=== PATIENT | female | born 1950 | race Hispanic/Latino ===

== ENCOUNTER 2018-02-13 20:55 | Inpatient (IN) | payer BC, OTHER ==
[2018-02-13 22:00] LABS: Absolute Lymphocytes (CBC) 3.4 K/uL (0.7-4.9); Absolute Monocytes 0.7 K/uL (0.1-1.3); Absolute Neutrophil 5.5 K/uL (1.8-8.0); Basophils % 1.2 % (0-1.3); Eosinophils % 3.3 % (0-4.4); Hematocrit 39.6 % (36.0-45.0); Lymphocytes % 33.7 % (15.3-44.8); MCV 86.8 fL (80-100); MPV 10.1 fL (7.6-11.3); Monocytes % 7.3 % (3.3-12.3); RBC Red Blood Cell Count 4.56 M/uL (3.86-4.86)
[2018-02-13 22:12] LABS: Protime INR 0.92
[2018-02-13] MEDS ORDERED: ASPIRIN 81 MG CHEWABLE TABLET ONE (22:12)
[2018-02-13 22:14] LABS: Bicarbonate 27 mEq/L (21-31); Glucose Level 193 mg/dL (65-120); Potassium 3.6 mEq/L (3.6-5.0); Sodium Level 137 mEq/L (135-145)
[2018-02-13 22:21] LABS: ALT/SGPT 33 IU/L (10-60); AST/SGOT 34 IU/L (10-42); Albumin 4.2 g/dL (3.2-5.5); Alkaline Phosphatase 68 IU/L (42-121); BUN Blood Urea Nitrogen 14 mg/dL (6-20); Bilirubin Direct < 0.1 mg/dL (0-0.2); Bilirubin Total 0.3 mg/dL (0.3-1.2); Creatine Phosphokinase 58 IU/L (22-269); Magnesium 1.8 mg/dL (1.8-2.5); Protein, Total 7.5 g/dL (6.0-8.3)
[2018-02-13 22:22] LABS: CKMB Creatine Kinase MB 2.6 ng/ml (0.3-4.0)
[2018-02-13 22:54] LABS: Urine Blood NEGATIVE (NEG); Urine Glucose NEGATIVE (NEG); Urine Protein NEGATIVE (NEG); Urine Specific Gravity 1.015 (1.005-1.030)
[2018-02-13] MEDS ORDERED: ENOXAPARIN 60 MG/0.6 ML SQ ONE (23:25)
--- NOTE | 2018-02-13 23:26 | ER ---
Nurse's Notes [facility] Name: Felisha Conde Age: 67 yrs Sex: Female : 1950 Arrival Date: 02/13/2018 Time: 20:58 Bed 23 Private MD: Diagnosis: ACUTE CORONARY SYNDROME Presentation: 02/13 21:08 Presenting complaint: Patient states: I have been out of my BP meds and I have been la1 having intermittent chest pain since early this week. Transition of care: patient was not received from another setting of care. Onset of symptoms was February 13, 2018. Initial Sepsis Screen: Does the patient meet any 2 criteria? No. Patient's initial sepsis screen is negative. Does the patient have a suspected source of infection? No. Patient's initial sepsis screen is negative. Care prior to arrival: None. 21:08 Method Of Arrival: Wheelchair la1 21:08 Acuity: MIRANDA 3 la1 Historical: - Allergies: 21:09 No Known Allergies; la1 - Home Meds: 22:11 telmisartan-amlodipine 40-5 mg oral tab 1 tab once daily for Hypertension [Active]; kr2 carvedilol 12.5 mg oral tab 1 tab 2 times per day for Hypertension [Active]; Kombiglyze XR 2.5-1,000 mg oral TM24 1 tab once daily for Type 2 Diabetes Mellitus [Active]; - PMHx: 21:09 Diabetes - NIDDM; Hyperlipidemia; Hypertension; la1 - Immunization history:: Adult Immunizations up to date. - Social history:: Smoking status: Patient/guardian denies using tobacco. Screenin:55 Abuse screen: Denies threats or abuse. Denies injuries from another. Nutritional kr2 screening: No deficits noted. Tuberculosis screening: No symptoms or risk factors identified. Fall Risk IV access (20 points). Assessment: 21:35 General: Appears in no apparent distress. uncomfortable, well groomed, well developed, kr2 well nourished, Behavior is cooperative, anxious. Pain: Pain radiates to left arm Pain currently is 7 out of 10 on a pain scale. Quality of pain is described as sharp, shooting, Pain began 3 weeks ago and has continued off and on. Yesterday and today it has been much worse though Is intermittent, Alleviated by nothing. Aggravated by increased activity. Neuro: Level of Consciousness is awake, alert, obeys commands, Oriented to person, place, time, situation, Appropriate for age. Cardiovascular: Capillary refill < 3 seconds in bilateral fingers Patient's skin is warm and dry. Rhythm is sinus rhythm. Respiratory: Airway is patent Respiratory effort is even, unlabored, Respiratory pattern is regular, symmetrical. GI: Abdomen is flat, non-distended, Patient currently denies nausea. : No signs and/or symptoms were reported regarding the genitourinary system. EENT: Nares are clear Oral mucosa is moist. Derm: Skin is intact, is healthy with good turgor, Skin is pink, warm \T\ dry. Musculoskeletal: Circulation, motion, and sensation intact. 23:12 Reassessment: Patient appears in no apparent distress at this time. Patient and/or kr2 family updated on plan of care and expected duration. Pain level reassessed. Patient is alert, oriented x 3, equal unlabored respirations, skin warm/dry/pink. Patient states feeling better. 02/14 00:01 Reassessment: Patient appears in no apparent distress at this time. Patient and/or kr2 family updated on plan of care and expected duration. Pain level reassessed. Patient is alert, oriented x 3, equal unlabored respirations, skin warm/dry/pink. Patient states feeling better. Patient states symptoms have improved. 00:41 Reassessment: Patient appears in no apparent distress at this time. Patient and/or kr2 family updated on plan of care and expected duration. Pain level reassessed. Patient is alert, oriented x 3, equal unlabored respirations, skin warm/dry/pink. Patient denies pain at this time. Vital Signs: 02/13 21:09 BP 150 / 61; Pulse 63; Resp 19; Temp 98.3; Pulse Ox 100% on R/A; Weight 63.05 kg; la1 Height 5 ft. 3 in. (160.02 cm); 22:00 BP 145 / 70; Pulse 61; Resp 17; Pulse Ox 98% on R/A; kr2 23:12 BP 139 / 54; Pulse 62; Resp 16; Pulse Ox 100% on R/A; kr2 02/14 00:02 BP 115 / 72; Pulse 57; Resp 15; Pulse Ox 97% on R/A; kr2 00:42 BP 143 / 52; Pulse 55; Resp 15; Pulse Ox 97% on R/A; kr2 02/13 21:09 Body Mass Index 24.62 (63.05 kg, 160.02 cm) la1 ED Course: 02/13 20:58 Patient arrived in ED. es 21:09 Triage completed. la1 21:10 Arm band placed on left wrist. la1 21:25 EKG done, by ED staff, reviewed by Frank Bragg MD. dh3 21:34 Frank Bragg MD is Attending Physician. tw4 21:35 Patient has correct armband on for positive identification. Bed in low position. Call kr2 light in reach. Side rails up X2. air sampling and monitoring on. Pulse ox on. NIBP on. Door closed. Warm blanket given. Head of bed elevated. 21:38 Missed attempt(s): 22 gauge in left antecubital area. Bleeding controlled, band aid kr2 applied, catheter tip intact. 21:40 Inserted saline lock: 20 gauge in right antecubital area, using aseptic technique. kr2 Blood collected. 21:51 Flor Pratt, SANTO is Primary Nurse. kr2 21:55 X-ray completed. Portable x-ray completed in exam room. Patient tolerated procedure ag1 well. 21:56 XRAY Chest (1 view) In Process Unspecified. EDMS 21:56 Patient maintains SpO2 saturation greater than 95% on room air. kr2 23:25 Drew Gomez MD is Hospitalizing Provider. tw4 02/14 01:00 No provider procedures requiring assistance completed. Patient admitted, IV remains in ak1 place. Administered Medications: 02/13 22:15 Drug: Aspirin 81 mg Route: PO; kr2 23:16 Follow up: Response: No adverse reaction kr2 23:29 Drug: Lovenox 1 mg/kg Route: Sub-Q; Site: right lower abdomen; kr2 02/14 00:03 Follow up: Response: No adverse reaction kr2 Outcome: 02/13 23:26 Decision to Hospitalize by Provider. tw4 02/14 01:01 Condition: good ak1 Instructed on the need for admit. 01:45 Admitted to Tele accompanied by tech, via stretcher, room 426, with chart, Report ak1 called to Liz BLANCHARD 02:00 Patient left the ED. bb Signatures: Dispatcher [employer] EDWA Liban, Cris es [place], Lorraine, RN RN Dwayne Calvillo RN RN la1 Lissette Livingston RN RN mae1 Lidia Francis [facility] Shelley Albarran 3 Flor Pratt RN RN kr2 Frank Bragg MD MD tw4 Corrections: (The following items were deleted from the chart) 00:03 00:02 BP 151 / 75; Pulse 57bpm; Resp 15bpm; Pulse Ox 97% RA; kr2 kr2
--- NOTE | 2018-02-13 23:26 | EDPHYS ---
Physician Documentation [facility] Name: Felisha Conde Age: 67 yrs Sex: Female : 1950 Arrival Date: 02/13/2018 Time: 20:58 Bed 23 Private MD: ED Physician Frank Bragg HPI: 02/14 00:15 This 67 yrs old Female presents to ER via Wheelchair with complaints of Chest tw4 Pain. 00:15 The patient or guardian reports chest pain that is located primarily in the anterior tw4 chest wall. The patient or guardian reports chest pain that is located primarily in the anterior chest wall, left. Onset: today. The pain does not radiate. Associated signs and symptoms: The patient has no apparent associated signs or symptoms. The chest pain is described as dull. Duration: The patient or guardian reports a single episode, that is now resolved. Modifying factors: The symptoms are alleviated by nothing. the symptoms are aggravated by nothing. Severity of pain: At its worst the pain was mild in the emergency department the pain has resolved. Historical: - Allergies: 02/13 21:09 No Known Allergies; la1 - Home Meds: 22:11 telmisartan-amlodipine 40-5 mg oral tab 1 tab once daily for Hypertension [Active]; kr2 carvedilol 12.5 mg oral tab 1 tab 2 times per day for Hypertension [Active]; Kombiglyze XR 2.5-1,000 mg oral TM24 1 tab once daily for Type 2 Diabetes Mellitus [Active]; - PMHx: 21:09 Diabetes - NIDDM; Hyperlipidemia; Hypertension; la1 - Immunization history:: Adult Immunizations up to date. - Social history:: Smoking status: Patient/guardian denies using tobacco. ROS: 02/14 00:15 Constitutional: Negative for fever, chills, and weight loss, Respiratory: Negative for tw4 shortness of breath, cough, wheezing, and pleuritic chest pain, Abdomen/GI: Negative for abdominal pain, nausea, vomiting, diarrhea, and constipation, Back: Negative for injury and pain, MS/Extremity: Negative for injury and deformity, Skin: Negative for injury, rash, and discoloration, Neuro: Negative for headache, weakness, numbness, tingling, and seizure. Cardiovascular: Positive for chest pain, Negative for edema, orthopnea, palpitations. Exam: 00:15 Constitutional: This is a well developed, well nourished patient who is awake, alert, tw4 and in no acute distress. Head/Face: Normocephalic, atraumatic. Chest/axilla: Normal chest wall appearance and motion. Nontender with no deformity. No lesions are appreciated. Cardiovascular: Regular rate and rhythm with a normal S1 and S2. No gallops, murmurs, or rubs. Normal PMI, no JVD. No pulse deficits. Respiratory: Lungs have equal breath sounds bilaterally, clear to auscultation and percussion. No rales, rhonchi or wheezes noted. No increased work of breathing, no retractions or nasal flaring. Abdomen/GI: Soft, non-tender, with normal bowel sounds. No distension or tympany. No guarding or rebound. No evidence of tenderness throughout. MS/ Extremity: Pulses equal, no cyanosis. Neurovascular intact. Full, normal range of motion. Neuro: Awake and alert, GCS 15, oriented to person, place, time, and situation. Cranial nerves II-XII grossly intact. Motor strength 5/5 in all extremities. Sensory grossly intact. Cerebellar exam normal. Normal gait. 00:31 ECG was reviewed by the Attending Physician. tw4 Vital Signs: 02/13 21:09 BP 150 / 61; Pulse 63; Resp 19; Temp 98.3; Pulse Ox 100% on R/A; Weight 63.05 kg; la1 Height 5 ft. 3 in. (160.02 cm); 22:00 BP 145 / 70; Pulse 61; Resp 17; Pulse Ox 98% on R/A; kr2 23:12 BP 139 / 54; Pulse 62; Resp 16; Pulse Ox 100% on R/A; kr2 02/14 00:02 BP 115 / 72; Pulse 57; Resp 15; Pulse Ox 97% on R/A; kr2 00:42 BP 143 / 52; Pulse 55; Resp 15; Pulse Ox 97% on R/A; kr2 02/13 21:09 Body Mass Index 24.62 (63.05 kg, 160.02 cm) la1 MDM: 02/13 21:34 Patient medically screened. tw4 02/14 00:15 Data reviewed: vital signs, nurses notes. Counseling: I had a detailed discussion with tw4 the patient and/or guardian regarding: the historical points, exam findings, and any diagnostic results supporting the discharge/admit diagnosis. Physician consultation: Drew Gomez MD regarding admission, patient's condition, need to come to ED to see patient, and will see patient in ED. Admission orders: after a detailed discussion of the patient's condition and case, the admit orders are written by me. ED course: Pt's troponin return elevated. will start on lovenox and admit to the hospital. 02/13 21:37 Order name: Basic Metabolic Panel; Complete Time: 23:12 02/13 21:37 Order name: BNP; Complete Time: 23:12 02/13 21:37 Order name: CBC with Diff; Complete Time: 23:12 02/13 21:37 Order name: Ckmb; Complete Time: 23:12 02/13 21:37 Order name: CPK; Complete Time: 23:12 02/13 21:37 Order name: LFT's; Complete Time: 23:12 02/13 21:37 Order name: Magnesium; Complete Time: 23:12 02/13 21:37 Order name: PT-INR; Complete Time: 23:12 02/13 21:37 Order name: Ptt, Activated; Complete Time: 23:12 02/13 21:37 Order name: Troponin (emerg Dept Use Only); Complete Time: 23:12 02/13 21:37 Order name: XRAY Chest (1 view) 02/13 22:48 Order name: Urine Dipstick--Ancillary (enter results); Complete Time: 23:12 02/13 21:37 Order name: EKG; Complete Time: 21:37 02/13 21:37 Order name: Cardiac monitoring; Complete Time: 21:51 02/13 21:37 Order name: EKG - Nurse/Tech; Complete Time: 21:51 02/13 21:37 Order name: IV Saline Lock; Complete Time: 21:51 02/13 21:37 Order name: Labs collected and sent; Complete Time: 21:51 02/13 21:37 Order name: O2 Per Protocol; Complete Time: 21:51 02/13 21:37 Order name: O2 Sat Monitoring; Complete Time: 21:51 tw4 02/13 21:37 Order name: Urine Dipstick-Ancillary (obtain specimen); Complete Time: 22:32 tw4 EC:31 Rate is 63 beats/min. Rhythm is regular. QRS [place] is Normal. IN interval is normal. QRS tw4 interval is normal. QT interval is normal. T waves are Inverted in leads V1, V2. Clinical impression: Cardiac ischemia. Interpreted by me. Reviewed by me. Administered Medications: 02/13 22:15 Drug: Aspirin 81 mg Route: PO; kr2 23:16 Follow up: Response: No adverse reaction kr2 23:29 Drug: Lovenox 1 mg/kg Route: Sub-Q; Site: right lower abdomen; kr2 02/14 00:03 Follow up: Response: No adverse reaction kr2 Disposition: 02/13/18 23:26 Hospitalization ordered by Drew Gomez for Observation. Preliminary diagnosis is ACUTE CORONARY SYNDROME. - Bed requested for Telemetry/MedSurg (Inpatient). - Status is Observation. bb - Condition is Fair. - Problem is new. - Symptoms have improved. UTI on Admission? No Signatures: Dispatcher [employer] Malu Rivas RN RN kl Ballard, Brenda, RN RN bb Attema, Lee, RN RN la1 Reaves, Karey, RN RN kr2 Frank Bragg MD MD tw4
--- NOTE | 2018-02-14 00:46 | P.HP ---
Certification for Inpatient Patient admitted to: Observation With expected LOS: <2 Midnights Practitioner: I am a practitioner with admitting privileges, knowledge of patient current condition, hospital course, and medical plan of care. Services: Services provided to patient in accordance with Admission requirements found in Title 42 Section 412.3 of the Code of Federal Regulations Patient History Date of Service: 02/14/18 Reason for admission: NSTEMI History of Present Illness: Ms Conde is a 67 years old woman with history of DM II, HTN, who has not been taking her blood pressure medication for the last week. Since yesterday she noticed that her BP increased, associated with recurrent episodes of chest pain. Today she had chest pain episode while her BP was about 190's/10's. She describe the pain as tightness sensation, substernal, no radiation, associated with nausea. Intensity 7/10. The pain last for about 10 minutes. EKG shows T wave inversion on septal leads. Trop I 0.31. Currently she is chest pain free. Allergies soy Allergy (Verified 05/31/15 14:56) Hives/Rash No Known Allergies Allergy (Uncoded 10/03/17 18:08) Unknown Home medications list reviewed: Yes Home Medications: Escitalopram Oxalate 10 mg PO DAILY 05/31/15 Ferrous Sulfate [Ferrous Sulfate*] 325 mg PO DAILY 05/31/15 Glimepiride [Amaryl] 4 mg PO DAILY 05/31/15 Hydrochlorothiazide [Hydrochlorothiazide*] 12.5 mg PO DAILY 05/31/15 Lorazepam [Ativan*] 0.5 mg PO PRN 05/31/15 Metformin ER [Glucophage ER*] 1,000 mg PO DAILY 05/31/15 Saxagliptin HCl [Onglyza] 2.5 mg PO DAILY 05/31/15 Amlodipine [Norvasc*] 10 mg PO DAILY #30 tab 06/01/15 Carvedilol [Coreg*] 12.5 mg PO BID 6AM 6PM #60 tab 06/01/15 Lisinopril [Prinivil*] 40 mg PO DAILY #60 tab 06/01/15 - Past Medical/Surgical History Diabetic: Yes -: HTN -: IDDM -: Hystectomy - Family History Family History: Reviewed- Non-Contributory - Social History Alcohol use: No CD- Drugs: No Caffeine use: Yes Place of Residence: Home Review of Systems 10-point ROS is otherwise unremarkable Physical Examination - Physical Exam General: Alert, In no apparent distress HEENT: Atraumatic, PERRLA, Mucous membr. moist/pink, EOMI, Sclerae nonicteric Neck: Supple, 2+ carotid pulse no bruit, No LAD, Without JVD or thyroid abnormality Respiratory: Clear to auscultation bilaterally, Normal air movement Cardiovascular: Regular rate/rhythm, Normal S1 S2 Gastrointestinal: Normal bowel sounds, No tenderness Musculoskeletal: No tenderness Integumentary: No rashes Neurological: Normal speech, Normal strength at 5/5 x4 extr, Normal tone, Normal affect Lymphatics: No axilla or inguinal lymphadenopathy - Studies Laboratory Data (last 24 hrs) 02/13/18 21:40: PT 10.8, INR 0.92, APTT 20.7 L 02/13/18 21:40: WBC 10.1, Hgb 13.2, Hct 39.6, Plt Count 312 02/13/18 21:40: B-Natriuretic Peptide 96 02/13/18 21:40: Sodium 137, Potassium 3.6, BUN 14, Creatinine 0.77, Glucose 193 H, Magnesium 1.8, Total Bilirubin 0.3, AST 34, ALT 33, Alkaline Phosphatase 68 Assessment and Plan - Problems (Diagnosis) (1) Chest pain Onset Date: 06/03/15 Current Visit: No Status: Acute Qualifiers: Chest pain type: chest pain due to myocardial ischemia Ischemic chest pain type: unstable angina pectoris Qualified Code(s): I20.0 - Unstable angina (2) Diabetes mellitus Onset Date: 06/03/15 Current Visit: No Status: Acute Qualifiers: Diabetes mellitus type: type 2 Diabetes mellitus mcc insulin use: without mcc use Diabetes mellitus complication status: with unspecified complications Qualified Code(s): E11.8 - Type 2 diabetes mellitus with unspecified complications (3) Hypertension, uncontrolled Onset Date: 06/03/15 Current Visit: No Status: Acute - Plan Ms Conde will be admitted to the hospital due to NSTEMI. Initial troponin I elevated, EKG with ischemic changes. Will order full dose Lovenox, ASA, Brilinta , Atorvastatin. Will wave beta keith since her HR is on the lower side. Consult cardiology team. - Advance Directives Does patient have a Living Will: No Does patient have a Durable POA for Healthcare: No - Code Status/Comfort Care Code Status Assessed: Yes Code Status: Full Code
[2018-02-14] MEDS ORDERED: TICAGRELOR 90 MG TABLET PO ONE ×2 (01:42→02:24)
[2018-02-14] MEDS ORDERED: GLUCAGON 1 MG/VIAL IM PRN (01:42)
[2018-02-14] MEDS ORDERED: ACETAMINOPHEN 500 MG TAB PO PRN (01:42)
[2018-02-14] MEDS ORDERED: D50W 25 GM/50 ML SYRINGE IV PRN (01:42)
[2018-02-14] MEDS ORDERED: NITROGLYCERIN 0.4 MG/TAB SL PRN (01:42)
[2018-02-14 02:10] VITALS: BMI 24.0
[2018-02-14 03:07] LABS: Absolute Lymphocytes (CBC) 3.7 K/uL (0.7-4.9); Absolute Monocytes 0.8 K/uL (0.1-1.3); Absolute Neutrophil 4.6 K/uL (1.8-8.0); Basophils % 1.1 % (0-1.3); Eosinophils % 3.1 % (0-4.4); Hematocrit 36.8 % (36.0-45.0); Lymphocytes % 39.1 % (15.3-44.8); MCH 28.8 pg (27.0-35.0); MPV 10.2 fL (7.6-11.3); Monocytes % 8.1 % (3.3-12.3); RBC Red Blood Cell Count 4.23 M/uL (3.86-4.86)
[2018-02-14 03:30] LABS: BUN Blood Urea Nitrogen 13 mg/dL (6-20); Bicarbonate 28 mEq/L (21-31); Glucose Level 196 mg/dL (65-120)
[2018-02-14 03:31] LABS: HDL Cholesterol 33 mg/dL (29-89); LDL Cholesterol, Calculated ND (<130)
[2018-02-14 03:47] LABS: Potassium 3.8 mEq/L (3.6-5.0); Sodium Level 138 mEq/L (135-145)
[2018-02-14 04:06] LABS: LDL, Direct 118 mg/dl (<130)
--- NOTE | 2018-02-14 07:01 | EKG ---
Test Date: 2018-02-14 Test Time: 05:28:10 Enterprise Application Developer: RT T MEASUREMENT RESULTS: Intervals: Rate: 53 MD: 186 QRSD: 92 QT: 474 QTc: 444 [place]: P: 43 MD: 186 QRS: 52 T: 93 INTERPRETIVE STATEMENTS: Sinus bradycardia Nonspecific ST and T wave abnormality Abnormal ECG Compared to ECG 02/13/2018 21:21:32 ST (T wave) deviation now present Sinus rhythm no longer present Electronically Signed On 02-14-18 07:00:34 CDT by Abram Ivan
--- NOTE | 2018-02-14 07:02 | EKG ---
Test Date: 2018-02-13 Test Time: 21:21:32 Bread Slicer Machine: MAICO MEASUREMENT RESULTS: Intervals: Rate: 63 [place]: 172 QRSD: 94 QT: 420 QTc: 429 [place]: P: 32 [place]: 172 QRS: 56 T: 81 INTERPRETIVE STATEMENTS: Normal sinus rhythm Normal ECG Compared to ECG 06/01/2015 06:01:31 Sinus bradycardia no longer present Electronically Signed On 02-14-18 07:01:17 CDT by Abram Ivan
[2018-02-14] MEDS: INSULIN -REGULAR HUMAN 50 UNIT/0.5 ML ML SQ SCH ×4 (07:30→21:00)
--- NOTE | 2018-02-14 08:05 | RAD REPORT ---
EXAM DESCRIPTION: Subha Single View02/13/2018 9:56 pm CLINICAL HISTORY: Chest pain COMPARISON: 2014 FINDINGS: The lungs appear clear of acute infiltrate. The heart is normal size. Curvilinear density overlying the left lower neck probably represents overlying artifact and should b e correlated clinically IMPRESSION: No acute abnormalities displayed
[2018-02-14] MEDS: LISINOPRIL 20 MG TAB PO SCH (10:30)
[2018-02-14] MEDS: ASPIRIN 325 MG TAB PO SCH (10:30)
[2018-02-14] MEDS: ENOXAPARIN 60 MG/0.6 ML SQ SCH ×2 (10:31→21:28)
--- NOTE | 2018-02-14 14:15 | CON ---
A 67-year-old woman. History Of Present Illness: Ms. Conde is a woman, who was doing very well until she ran out of medi Greats. She said she had insurance coverage canceled. One of her medicines was too expensive to af barker, so she stopped all them shortly after that. When she would exert herself, she had notice her b lood pressure would go up somewhere like 200/100 and she would get a tight feeling in her chest, so s he came to our hospital with those symptoms. Presently is asymptomatic. She has troponins of 0.3. She has EKGs that are normal. One of her EKGs shows nonspecific ST changes. We do not know what her outpatient medications are present. She is receiving Lovenox, Lipitor, aspirin, nitroglycerin, Bril inta. I do not see that she is on any medication doses that reduce the risk of heart disease of diab etic people. I think she would probably benefit from being on either an ROBSON inhibitor or angiotensin receptor keith and perhaps one of the medications like Jardiance. Presently, she is asymptomatic. She was asymptomatic until she ran out of medicines. I am going to recommend that we do a stress t est, I recommended to do that tomorrow. Today, we will have her on usual medications that control CA D and we will see if she has enough ischemia to warrant doing a cardiac cath. Thank you very much for kind referral of Ms. Conde. So, I will follow her with you. AMINAH Voice ID: [id number] Report ID: [id number]
--- NOTE | 2018-02-14 16:40 | ECHO ---
HEIGHT: 5 ft 3 in WEIGHT: 136 lb 0 oz DATE OF STUDY: 02/14/[address]: Drew Saenz MD 2-DIMENSIONAL: YES M.MODE: YES DOPPLER: YES COLOR FLOW: YES TDS: PORTABLE: DEFINITY: BUBBLE STUDY: DIAGNOSIS: CHEST PAIN CARDIAC HISTORY: CATHERIZATION: NO SURGERY: NO PROSTHETIC VALVE: NO PACEMAKER: NO MEASUREMENTS (cm) DIASTOLIC (NORMALS) SYSTOLIC (NORMALS) IVSd 1.0 (0.6-1.2) LA Diam 3.6 (1.9-4.0) LVEF 75% LVIDd 4.3 (3.5-5.7) LVIDs 2.4 (2.0-3.5) %FS 43% LVPWd 1.1 (0.6-1.2) Ao Diam 2.3 (2.0-3.7) 2 DIMENSIONAL ASSESSMENT: RIGHT ATRIUM: DILATED LEFT ATRIUM: DILATED RIGHT VENTRICLE: NORMAL LEFT VENTRICLE: NORMAL TRICUSPID VALVE: NORMAL MITRAL VALVE: NORMAL PULMONIC VALVE: NORMAL AORTIC VALVE: NORMAL PERICARDIAL EFFUSION: NONE AORTIC ROOT: NORMAL LEFT VENTRICULAR WALL MOTION: NORMAL DOPPLER/COLOR FLOW: MILD TRICUSPID REGURGITATION. NORMAL RIGHT VENTRICULAR SYSTOLIC PRESSURE. COMMENTS: NORMAL LEFT VENTRICULAR EJECTION FRACTION. DILATED LEFT AND RIGHT ATRIUM. MILD TRICUSPID REGURGITATION. TECHNOLOGIST: LOLIS BEDOLLA
[2018-02-14] MEDS: CARVEDILOL 3.125 MG TAB PO SCH (17:00)
[2018-02-14] MEDS ORDERED: ATORVASTATIN 80 MG TAB PO SCH (21:00)
[2018-02-14 22:00] VITALS: O2SAT 99
[2018-02-15] MEDS: CARVEDILOL 3.125 MG TAB PO SCH ×2 (06:32→17:48)
[2018-02-15] MEDS ORDERED: REGADENOSON 0.4 MG/5 ML SYR IV ONE (07:21)
[2018-02-15] MEDS: INSULIN -REGULAR HUMAN 50 UNIT/0.5 ML ML SQ SCH ×3 (07:30→16:23)
[2018-02-15] MEDS: ENOXAPARIN 60 MG/0.6 ML SQ SCH (09:00)
--- NOTE | 2018-02-15 10:40 | RAD REPORT ---
EXAM DESCRIPTION: NM - Rest Stress Cardiac Imaging - 02/15/2018 10:33 am CLINICAL HISTORY: Chest pain COMPARISON: None. TECHNIQUE: The patient was administered 11 mCi of Tc 99m Sestamibi prior to resting SPECT imaging of the heart. The patient was then administered 30.5 mCi of Tc 99m Sestamibi following exercise or phar macologic stress. Multiplanar SPECT images were reviewed. FINDINGS: The end diastolic volume is 63 ml, the end systolic volume is 25 ml, and the ejection frac tion is 60 %. No stress-induced ischemic changes are identifiable. There is a fixed defect at the anteroseptal wall mid in apex portion. This could be breast attenuation artifact over scarring. Elsewhere there is no fixed defect or perfusion abnormality. IMPRESSION: No stress-induced ischemia. Fixed anteroseptal defect from breast attenuation artifact or scarring. Normal ejection fraction and ventricular volumes.
[2018-02-15] MEDS: LISINOPRIL 20 MG TAB PO SCH (10:47)
[2018-02-15] MEDS: ASPIRIN 325 MG TAB PO SCH (10:47)
--- NOTE | 2018-02-15 11:04 | TREADPHA ---
DX: CHEST PAIN Date of Study: 02/15/2018 Ht: 5' 3 " Wt: 136 lb 0 oz Consulting Physician: OTF MEDICATIONS: TYLENOL, ASPIRIN, LIPITOR, COREG, DEXTROSE, LOVENOX, GLUCAGEN, NOVOLIN-R, PRINIVIL, NITROSTAT HISTORY: 67 YEAR OLD FEMALE HERE FOR CHEST PAIN. HISTORY OF DIABETES, HYPERLIPIDEMIA AND HYPERTENSION. PHYSICIAL EXAMINATION: RESTING B.P.: 154/77 RESTING H.R.: 53 RESTING EKG: SINUS RHYTHM, POSSIBLE ANTERIOR ISCHEMIA, LEFT VENTRICULAR HYPERTROPHY. PROTOCOL: LEXISCAN EXERCISE TIME: 3:30 B.P. AT PEAK STRESS: 170/57 IMPRESSION: LEXISCAN STRESS TEST PERFORMED. CARDIOLITE INJECTED PER PROTOCOL. NO ARRRHYTMIAS NOTED. DENIES ANY CHEST PAIN. SEE NUCLEAR MEDICINE REPORT.
--- NOTE | 2018-02-15 16:28 | P.DS ---
Admission Date: 02/13/18 Discharge Date: 02/15/18 Disposition: ROUTINE DISCHARGE Discharge Condition: GOOD Reason for Admission: NSTEMI - Problems (1) Chest pain Onset Date: 06/03/15 Current Visit: No Status: Acute Qualifiers: Chest pain type: chest pain due to myocardial ischemia Ischemic chest pain type: unstable angina pectoris Qualified Code(s): I20.0 - Unstable angina (2) Diabetes mellitus Onset Date: 06/03/15 Current Visit: No Status: Acute Qualifiers: Diabetes mellitus type: type 2 Diabetes mellitus extermination inspector insulin use: without long-term use Diabetes mellitus complication status: with unspecified complications Qualified Code(s): E11.8 - Type 2 diabetes mellitus with unspecified complications (3) Hypertension, uncontrolled Onset Date: 06/03/15 Current Visit: No Status: Acute Brief History of Present Illness: Ms Conde is a 67 years old woman with history of DM II, HTN, who has not been taking her blood pressure medication for the last week. Since yesterday she noticed that her BP increased, associated with recurrent episodes of chest pain. Today she had chest pain episode while her BP was about 190's/10's. She describe the pain as tightness sensation, substernal, no radiation, associated with nausea. Intensity 7/10. The pain last for about 10 minutes. EKG shows T wave inversion on septal leads. Trop I 0.31. Currently she is chest pain free. Hospital Course: During her stay in the hospital, troponin I were elevated (max 0.36), EKG showd non-specific ST-T abnormailities. ECHO report normal LV function with EF 75% without WMA. Cardiology team evaluated the patient and recommended to do a NM stress test. The test was done today and was negative to induce ischemia. There was a fix defect at the anteroseptal wall mid in apex portion. This could be breast attenuation artifact over scarring. The patient resolved her symptoms and she is clinically and hemodynamically stable. She will be discharged home and let her PCP follow up in 1-2 weeks. Vital Signs/Physical Exam: Temp Pulse Resp BP Pulse Ox 98.1 F 63 14 145/70 H 94 02/15/18 12:00 02/15/18 12:00 02/15/18 12:00 02/15/18 12:00 02/15/18 12:00 General: Alert, In no apparent distress HEENT: Atraumatic, PERRLA, EOMI Neck: Supple, JVD not distended Respiratory: Clear to auscultation bilaterally, Normal air movement Cardiovascular: Regular rate/rhythm, Normal S1 S2 Gastrointestinal: Normal bowel sounds, No tenderness Musculoskeletal: No tenderness Integumentary: No rashes Neurological: Normal speech, Normal tone, Normal affect Lymphatics: No axilla or inguinal lymphadenopathy Laboratory Data at Discharge: WBC 9.4 K/uL (4.3-10.9) 02/14/18 02:28 Hgb 12.2 g/dL (12.0-15.0) 02/14/18 02:28 Hct 36.8 % (36.0-45.0) 02/14/18 02:28 Plt Count 280 K/uL (152-406) 02/14/18 02:28 PT 10.8 SECONDS (9.5-12.5) 02/13/18 21:40 INR 0.92 02/13/18 21:40 APTT 20.7 SECONDS (24.3-36.9) L 02/13/18 21:40 Sodium 138 mEq/L (135-145) 02/14/18 02:28 Potassium 3.8 mEq/L (3.6-5.0) 02/14/18 02:28 BUN 13 mg/dL (6-20) 02/14/18 02:28 Creatinine 0.67 mg/dL (0.44-1.00) 02/14/18 02:28 Glucose 196 mg/dL (65-120) H 02/14/18 02:28 Magnesium 1.8 mg/dL (1.8-2.5) 02/13/18 21:40 Total Bilirubin 0.3 mg/dL (0.3-1.2) 02/13/18 21:40 AST 34 IU/L (10-42) 02/13/18 21:40 ALT 33 IU/L (10-60) 02/13/18 21:40 Alkaline Phosphatase 68 IU/L (42-121) 02/13/18 21:40 Troponin I 0.12 ng/mL (<0.03) H 02/14/18 17:30 B-Natriuretic Peptide 96 pg/ml (<=100) 02/13/18 21:40 Triglycerides 434 mg/dL (35-160) H 02/14/18 02:28 Cholesterol 179 mg/dL (<200) 02/14/18 02:28 LDL Cholesterol Direct 118 mg/dl (<130) 02/14/18 02:28 HDL Cholesterol 33 mg/dL (29-89) 02/14/18 02:28 Cholesterol/HDL Ratio 5.42 02/14/18 02:28 Home Medications: Carvedilol [Coreg*] 12.5 mg PO BID 02/14/18 Rosuvastatin [Crestor*] 10 mg PO BEDTIME 02/14/18 Saxagliptin HCl/Metformin HCl [Kombiglyze Xr 2.5-1,000 mg Tab] 1 each PO BEDTIME 02/14/18 Telmisartan/Amlodipine [Telmisartan-Amlodipine 40-5 mg] 1 each PO DAILY Patient Discharge Instructions: F/U with PCP next week. Diet: ADA Activity: Ad jazmine Time spent managing pt's care (in minutes): 35
[2018-02-15 16:34] VITALS: BP 157/71; TEMP 98.9
--- NOTE | 2018-02-16 01:14 | PN ---
Date of Progress Note: 02/13/2018 The patient was seen by Dr. Ivan on 02/13/2018. A nuclear stress test was done today. There were no EKG changes. Normal blood pressure response. Nuclear medicine reading was negative for ischemia. The patient can go home whenever it is okay with Dr. Saenz. HENNY/MANUEL Voice ID: [id number] Report ID: [id number]
== END 2018-02-15 17:59 | disposition home or self-care (01) | DRG 311 ==
LOC: ER 20:55 → OBSVTOIN 23:26 → ERHOLD 23:26 → 4TH 02-14 01:26
PROVIDERS: ADMIT Internal Medicine; ATTEND Internal Medicine
DX: I20.0 Unstable angina (principal); I10 Essential (primary) hypertension; E11.9 Type 2 diabetes mellitus without complications
CPT/HCPCS: 36415; 71045; 78452; 80048; 80061; 80076; 81003; 82550; 82553; 82962; 83735; 83880; 84484; 85025; 85379; 85610; 85730; 93005; 93017; 93306; 96372; 99285; A9500; J1650; J2785

== ENCOUNTER 2018-09-15 15:37 | Observation (INO) | payer BC ==
[2018-09-15 16:08] LABS: Absolute Lymphocytes (CBC) 2.7 K/uL (0.7-4.9); Absolute Monocytes 0.6 K/uL (0.1-1.3); Absolute Neutrophil 3.9 K/uL (1.8-8.0); Basophils % 0.8 % (0-1.3); Eosinophils % 2.7 % (0-4.4); Hematocrit 38.7 % (36.0-45.0); Lymphocytes % 36.8 % (15.3-44.8); MCV 87.4 fL (80-100); MPV 9.7 fL (7.6-11.3); Monocytes % 7.8 % (3.3-12.3); RBC Red Blood Cell Count 4.43 M/uL (3.86-4.86)
[2018-09-15 16:12] LABS: Protime INR 0.92
[2018-09-15] MEDS ORDERED: ASPIRIN 81 MG CHEWABLE TABLET ONE (16:25)
[2018-09-15] MEDS ORDERED: NITROGLYCERIN 0.4 MG/TAB SL ONE (16:26)
[2018-09-15] MEDS ORDERED: ACETAMINOPHEN 325 MG TABLET ONE (16:26)
[2018-09-15 16:28] LABS: ALT/SGPT 32 U/L (12-78); AST/SGOT 30 U/L (15-37); Albumin 4.3 g/dL (3.4-5.0); Alkaline Phosphatase 59 U/L (45-117); BUN Blood Urea Nitrogen 15 mg/dL (7-18); Bicarbonate 28 mmol/L (21-32); Bilirubin Direct 0.1 mg/dL (0-0.2); Bilirubin Total 0.4 mg/dL (0.2-1.0); Glucose Level 100 mg/dL (74-106); Magnesium 1.9 mg/dL (1.8-2.4); NT PRO-BNP 304 pg/mL (<125); Potassium 3.8 mmol/L (3.5-5.1); Sodium Level 142 mmol/L (136-145); Troponin (Emerg Dept Use Only) < 0.02 ng/mL (0.0-0.045)
--- NOTE | 2018-09-15 16:59 | ER ---
Nurse's Notes [facility] Name: Felisha Conde Age: 67 yrs Sex: Female : 1950 Arrival Date: 09/15/2018 Time: 15:37 Bed 24 Private MD: Diagnosis: Chest pain, unspecified;Hypertensive Emergency Presentation: 09/15 15:39 Presenting complaint: Patient states: Her blood pressure has been high for the past aj1 week. Today at work she checked it and the SBP was 180. Reports that she has also been having chest pain when her blood pressure is high for the past week. Reports palpitations and shortness of breath as well. Transition of care: patient was not received from another setting of care. Onset of symptoms was September 08, 2018. Risk Assessment: Do you want to hurt yourself or someone else? Patient reports no desire to harm self or others. Initial Sepsis Screen: Does the patient meet any 2 criteria? No. Patient's initial sepsis screen is negative. Does the patient have a suspected source of infection? No. Patient's initial sepsis screen is negative. Care prior to arrival: None. 15:39 Method Of Arrival: Wheelchair aj1 15:39 Acuity: MIRANDA 3 aj1 Triage Assessment: 15:42 General: Appears in no apparent distress. Behavior is cooperative, anxious. Pain: aj1 Complains of pain in anterior aspect of right upper chest and mid-sternal area Pain currently is 9 out of 10 on a pain scale. at worst was 10 out of 10 on a pain scale. Neuro: Level of Consciousness is awake, alert, obeys commands. Cardiovascular: Patient's skin is warm and dry. Respiratory: Airway is patent Respiratory effort is even, unlabored, Respiratory pattern is regular, symmetrical. Historical: - Allergies: 15:42 Soy; aj1 - Home Meds: 15:42 telmisartan-amlodipine 40-5 mg Oral tab 1 tab once daily for Hypertension [Active]; aj1 Kombiglyze XR 2.5-1,000 mg Oral TM24 1 tab once daily for Type 2 Diabetes Mellitus [Active]; diabetic meds [Active]; cholesterol meds [Active]; carvedilol 12.5 mg Oral tab 1 tab 2 times per day for Hypertension [Active]; lisinopril Oral [Active]; - PMHx: 15:42 Diabetes - NIDDM; Hyperlipidemia; Hypertension; aj1 - Immunization history:: Flu vaccine is not up to date. - Social history:: Smoking status: Patient/guardian denies using tobacco. - Ebola Screening: : Patient denies travel to an Ebola-affected area in the 21 days before illness onset. Screenin:04 Abuse screen: Denies threats or abuse. Denies injuries from another. Nutritional kr2 screening: No deficits noted. Tuberculosis screening: No symptoms or risk factors identified. Fall Risk IV access (20 points). Assessment: 16:01 General: Appears in no apparent distress. uncomfortable, well groomed, well developed, kr2 well nourished, Behavior is cooperative, anxious. Pain: Complains of pain in mid-sternal area and anterior aspect of right upper chest Pain radiates to chest Pain currently is 10 out of 10 on a pain scale. Quality of pain is described as pressure, sharp, shooting, Pain began 1 hour ago. Is continuous. Neuro: Level of Consciousness is awake, alert, obeys commands, Oriented to person, place, time, situation, Appropriate for age. Cardiovascular: Capillary refill < 3 seconds in bilateral fingers Patient's skin is warm and dry. Respiratory: Airway is patent Respiratory effort is even, unlabored, Respiratory pattern is regular, symmetrical. GI: Abdomen is flat, non-distended, Bowel sounds present X 4 quads. Abd is soft and non tender X 4 quads. EENT: Oral mucosa is moist. Derm: Skin is intact, is fragile, with poor turgor Skin is pink, warm \T\ dry. Musculoskeletal: Circulation, motion, and sensation intact. 16:33 Reassessment: Patient appears in no apparent distress at this time. Patient and/or kr2 family updated on plan of care and expected duration. Pain level reassessed. Patient is alert, oriented x 3, equal unlabored respirations, skin warm/dry/pink. Patient states her pain is decreased after 1 dose of nitro and she does not want another dose. 17:30 Reassessment: Patient appears in no apparent distress at this time. Patient and/or kr2 family updated on plan of care and expected duration. Pain level reassessed. Patient is alert, oriented x 3, equal unlabored respirations, skin warm/dry/pink. Patient states feeling better. Patient states symptoms have improved. 18:30 Reassessment: Patient appears in no apparent distress at this time. Patient and/or kr2 family updated on plan of care and expected duration. Pain level reassessed. Patient is alert, oriented x 3, equal unlabored respirations, skin warm/dry/pink. Given water and sandwich with approval of provider Patient denies pain at this time. Patient states feeling better. 19:30 Reassessment: Patient appears in no apparent distress at this time. Patient and/or kr2 family updated on plan of care and expected duration. Pain level reassessed. Patient is alert, oriented x 3, equal unlabored respirations, skin warm/dry/pink. Patient denies pain at this time. Patient states feeling better. Patient states symptoms have improved. Vital Signs: 15:42 BP 202 / 71; Pulse 62; Resp 20; Temp 97.2; Pulse Ox 99% on R/A; Weight 58.06 kg (R); aj1 Height 5 ft. 2 in. (157.48 cm) (R); Pain 9/10; 16:31 BP 185 / 62; Pulse 58; Resp 16; Pulse Ox 98% on R/A; kr2 17:30 BP 161 / 68; Pulse 62; Resp 15; Pulse Ox 97% on R/A; kr2 18:30 BP 149 / 85; Pulse 64; Resp 19; Pulse Ox 99% on R/A; kr2 19:30 BP 165 / 70; Pulse 60; Resp 18; Pulse Ox 99% on R/A; kr2 15:42 Body Mass Index 23.41 (58.06 kg, 157.48 cm) aj1 ED Course: 09/14 16:55 Inserted saline lock: 20 gauge in right antecubital area, using aseptic technique. kr2 Blood collected. Patient maintains SpO2 saturation greater than 95% on room air. 09/15 15:37 Patient arrived in ED. ds1 15:41 Triage completed. aj1 15:42 Arm band placed on Patient placed in an exam room. aj1 15:45 Huey Calderon PA is PHCP. jr8 15:45 Susan Swanson MD is Attending Physician. jr8 16:00 Flor Pratt, SANTO is Primary Nurse. kr2 16:04 Patient has correct armband on for positive identification. Placed in gown. Bed in low kr2 position. Call light in reach. Side rails up X2. Adult w/ patient. bisque kiln placer on. Pulse ox on. NIBP on. Door closed. Warm blanket given. Pillow given. Head of bed elevated. 16:31 XRAY Chest (1 view) In Process Unspecified. EDMS 16:58 Pati Ward MD is Hospitalizing Provider. jr8 19:45 No provider procedures requiring assistance completed. Patient admitted, IV remains in kr2 place. Administered Medications: 16:25 Drug: Nitroglycerin 0.4 mg Route: Sublingual; kr2 16:33 Follow up: Response: No adverse reaction; Pain is decreased; Blood pressure is lowered kr2 16:25 Drug: Aspirin Chewable Tablet 324 mg Route: PO; kr2 17:05 Follow up: Response: No adverse reaction kr2 16:29 Drug: Tylenol 650 mg Route: PO; kr2 17:05 Follow up: Response: No adverse reaction; Pain is decreased kr2 17:05 Drug: Nitroglycerin 0.4 mg Route: Sublingual; kr2 17:30 Follow up: Response: No adverse reaction; Blood pressure is lowered kr2 17:05 Drug: Enalaprilat 1.25 mg Route: IV; Rate: calculated rate; Site: right antecubital; kr2 17:10 Follow up: Response: No adverse reaction; Blood pressure is lowered; IV Status: kr2 Completed infusion Outcome: 16:58 Decision to Hospitalize by Provider. jr8 19:45 Admitted to Tele accompanied by tech, family with patient, via wheelchair, room 405, kr2 with chart, Report called to Bulltnvinay 19:45 Condition: stable 19:45 Instructed on the need for admit, Demonstrated understanding of instructions. 19:55 Patient left the ED. sugey Signatures: Dispatcher [employer] EDMS Albina Britt RN RN Keily Martínez Josh, PA PA jr8 Maico Banegas RN RN hj Reaves, Karey, RN RN kr2 Corrections: (The following items were deleted from the chart) 09/16 00:31 09/15 16:34 BP 161 / 68; Pulse 62bpm; Resp 15bpm; Pulse Ox 97% RA; kr2 kr2
--- NOTE | 2018-09-15 16:59 | EDPHYS ---
Physician Documentation [facility] Name: Felisha Conde Age: 67 yrs Sex: Female : 1950 Arrival Date: 09/15/2018 Time: 15:37 Bed 24 Private MD: ED Physician Susan Swanson HPI: 09/15 16:32 This 67 yrs old Female presents to ER via Wheelchair with complaints of Chest jr8 Pain, High Blood Pressure. 16:32 Onset: The symptoms/episode began/occurred gradually, 1 week(s) ago, and became worse jr8 and became persistent. 16:32 The patient or guardian reports chest pain that is located primarily in the substernal jr8 area, anterior chest wall, right. The pain radiates to the right arm. Associated signs and symptoms: Pertinent positives: nausea. The chest pain is described as squeezing. Duration: The patient or guardian reports multiple episodes. Modifying factors: The symptoms are alleviated by nothing. the symptoms are aggravated by activity. Severity of pain: At its worst the pain was moderate in the emergency department the pain is unchanged. The patient has not experienced similar symptoms in the past. The patient has not recently seen a physician. Stated that she is on multiple blood pressure medications but still has problems controlling it. Stated that for the past week her BP has been elevating more and now getting chest pain. Today the pain became to severe. At that time came to ED for further evaluation . Historical: - Allergies: 15:42 Soy; aj1 - Home Meds: 15:42 telmisartan-amlodipine 40-5 mg Oral tab 1 tab once daily for Hypertension [Active]; aj1 Kombiglyze XR 2.5-1,000 mg Oral TM24 1 tab once daily for Type 2 Diabetes Mellitus [Active]; diabetic meds [Active]; cholesterol meds [Active]; carvedilol 12.5 mg Oral tab 1 tab 2 times per day for Hypertension [Active]; lisinopril Oral [Active]; - PMHx: 15:42 Diabetes - NIDDM; Hyperlipidemia; Hypertension; aj1 - Immunization history:: Flu vaccine is not up to date. - Social history:: Smoking status: Patient/guardian denies using tobacco. - Ebola Screening: : Patient denies travel to an Ebola-affected area in the 21 days before illness onset. ROS: 16:32 Eyes: Negative for injury, pain, redness, and discharge, ENT: Negative for injury, jr8 pain, and discharge, Neck: Negative for injury, pain, and swelling, Respiratory: Negative for shortness of breath, cough, wheezing, and pleuritic chest pain, Back: Negative for injury and pain, MS/Extremity: Negative for injury and deformity, Skin: Negative for injury, rash, and discoloration, Neuro: Negative for headache, weakness, numbness, tingling, and seizure. 16:32 Cardiovascular: Positive for chest pain, Negative for edema, orthopnea, palpitations, paroxysmal nocturnal dyspnea. 16:32 Abdomen/GI: Positive for nausea, Negative for abdominal pain, vomiting, diarrhea, abdominal distension, hematemesis, black/tarry stool, rectal pain, rectal bleeding, bowel incontinence, flatulence. Exam: 16:32 Eyes: Pupils equal round and reactive to light, extra-ocular motions intact. Lids and jr8 lashes normal. Conjunctiva and sclera are non-icteric and not injected. Cornea within normal limits. Periorbital areas with no swelling, redness, or edema. ENT: Nares patent. No nasal discharge, no septal abnormalities noted. Tympanic membranes are normal and external auditory canals are clear. Oropharynx with no redness, swelling, or masses, exudates, or evidence of obstruction, uvula midline. Mucous membranes moist. Neck: Trachea midline, no thyromegaly or masses palpated, and no cervical lymphadenopathy. Supple, full range of motion without nuchal rigidity, or vertebral point tenderness. No Meningismus. Cardiovascular: Regular rate and rhythm with a normal S1 and S2. No gallops, murmurs, or rubs. Normal PMI, no JVD. No pulse deficits. Respiratory: Lungs have equal breath sounds bilaterally, clear to auscultation and percussion. No rales, rhonchi or wheezes noted. No increased work of breathing, no retractions or nasal flaring. Abdomen/GI: Soft, non-tender, with normal bowel sounds. No distension or tympany. No guarding or rebound. No evidence of tenderness throughout. Back: No spinal tenderness. No costovertebral tenderness. Full range of motion. Skin: Warm, dry with normal turgor. Normal color with no rashes, no lesions, and no evidence of cellulitis. MS/ Extremity: Pulses equal, no cyanosis. Neurovascular intact. Full, normal range of motion. Neuro: Awake and alert, GCS 15, oriented to person, place, time, and situation. Cranial nerves II-XII grossly intact. Motor strength 5/5 in all extremities. Sensory grossly intact. Cerebellar exam normal. Normal gait. Vital Signs: 15:42 BP 202 / 71; Pulse 62; Resp 20; Temp 97.2; Pulse Ox 99% on R/A; Weight 58.06 kg (R); aj1 Height 5 ft. 2 in. (157.48 cm) (R); Pain 9/10; 16:31 BP 185 / 62; Pulse 58; Resp 16; Pulse Ox 98% on R/A; kr2 17:30 BP 161 / 68; Pulse 62; Resp 15; Pulse Ox 97% on R/A; kr2 18:30 BP 149 / 85; Pulse 64; Resp 19; Pulse Ox 99% on R/A; kr2 19:30 BP 165 / 70; Pulse 60; Resp 18; Pulse Ox 99% on R/A; kr2 15:42 Body Mass Index 23.41 (58.06 kg, 157.48 cm) aj1 MDM: 15:45 Patient medically screened. jr8 16:56 ECG:. The patient was given aspirin in the Emergency Department. Data reviewed: vital [facility] signs, nurses notes, lab test result(s), EKG, radiologic studies, plain films, and as a result, I will admit patient. Data interpreted: Pulse oximetry: on room air is 97 %. Interpretation: normal. Counseling: I had a detailed discussion with the patient and/or guardian regarding: the historical points, exam findings, and any diagnostic results supporting the discharge/admit diagnosis, lab results, radiology results, the need for further work-up and treatment in the hospital. 16:56 Differential diagnosis: abnormal EKG, acute myocardial infarction, acute pericarditis, jr8 anxiety, chest wall pain, congestive heart failure cholecystitis, Cholelithiasis costochondritis, esophagitis, gastritis, gastroesophageal reflux disease (GERD), myocarditis, pancreatitis, pleurisy, pneumonia, pulmonary embolus, stable angina, thoracic aortic disection, unstable angina. 09/15 15:45 Order name: Basic Metabolic Panel jr8 09/15 15:45 Order name: CBC with Diff; Complete Time: 16:14 [facility] 09/15 15:45 Order name: LFT's [facility] 09/15 15:45 Order name: Magnesium; Complete Time: 16:50 [facility] 09/15 15:45 Order name: NT PRO-BNP; Complete Time: 16:50 [facility] 09/15 15:45 Order name: PT-INR; Complete Time: 16:50 [facility] 09/15 15:45 Order name: Troponin (emerg Dept Use Only); Complete Time: 16:50 [facility] 09/15 15:45 Order name: XRAY Chest (1 view); Complete Time: 16:17 [facility] 09/15 15:46 Order name: Basic Metabolic Panel; Complete Time: 16:50 [facility] 09/15 15:46 Order name: Liver (Hepatic) Function; Complete Time: 16:50 [facility] 09/15 16:37 Order name: Urine Dipstick--Ancillary (enter results) 09/15 16:37 Order name: Urine Dipstick-Ancillary; Complete Time: 16:17 [facility] 09/15 15:45 Order name: EKG; Complete Time: 15:46 [facility] 09/15 15:45 Order name: Cardiac monitoring; Complete Time: 15:48 [facility] 09/15 15:45 Order name: EKG - Nurse/Tech; Complete Time: 15:48 [facility] 09/15 15:45 Order name: IV Saline Lock; Complete Time: 16:05 [facility] 09/15 15:45 Order name: Labs collected and sent; Complete Time: 16:05 [facility] 09/15 15:45 Order name: O2 Per Protocol; Complete Time: 15:48 [facility] 09/15 15:45 Order name: O2 Sat Monitoring; Complete Time: 15:48 [facility] EC:56 Rate is 60 beats/min. Rhythm is regular, Normal Sinus Rhythm. QRS [place] is Normal. RI jr8 interval is normal at 166 msec. QRS interval is normal at 88 msec. QT interval is normal at 414 msec. No Q waves. T waves are Inverted. T waves are Flattened in lead aVL. No ST changes noted. Clinical impression: NSR w/ Non-specific ST/T Changes. Interpreted by me. Reviewed by me. Administered Medications: 16:25 Drug: Nitroglycerin 0.4 mg Route: Sublingual; kr2 16:33 Follow up: Response: No adverse reaction; Pain is decreased; Blood pressure is lowered kr2 16:25 Drug: Aspirin Chewable Tablet 324 mg Route: PO; kr2 17:05 Follow up: Response: No adverse reaction kr2 16:29 Drug: Tylenol 650 mg Route: PO; kr2 17:05 Follow up: Response: No adverse reaction; Pain is decreased kr2 17:05 Drug: Nitroglycerin 0.4 mg Route: Sublingual; kr2 17:30 Follow up: Response: No adverse reaction; Blood pressure is lowered kr2 17:05 Drug: Enalaprilat 1.25 mg Route: IV; Rate: calculated rate; Site: right antecubital; kr2 17:10 Follow up: Response: No adverse reaction; Blood pressure is lowered; IV Status: kr2 Completed infusion Disposition: 09/15/18 16:58 Hospitalization ordered by Pati Ward for Observation. Preliminary diagnosis are Chest pain, unspecified, Hypertensive Emergency . - Bed requested for Telemetry/MedSurg (observation). - Status is Observation. hj - Condition is Stable. - Problem is new. - Symptoms have improved. UTI on Admission? No Addendum: 09/18/2018 06:05 Co-signature as Attending Physician, Susan Swanson MD. m a2 Signatures: Dispatcher [employer] EDMS Albina Britt RN RN aj1 Erica Engle RN RN dw Huey Calderon PA PA jr8 Maico Banegas RN RN hj Reaves, Karey, RN RN kr2 Susan Swanson MD MD ma2 Corrections: (The following items were deleted from the chart) 09/15 16:34 16:32 Associated signs and symptoms: jr8 jr8 16:59 16:58 Hospitalization Ordered by Pati Ward MD for Observation. Preliminary jr8 diagnosis is Chest pain, unspecified; Hypertensive Urgency. Bed requested for Telemetry/MedSurg (observation). Status is Observation. Condition is Stable. Problem is new. Symptoms have improved. UTI on Admission? No. jr8 18:06 16:59 09/15/2018 16:58 Hospitalization Ordered by Pati Ward MD for Observation. dw Preliminary diagnosis is Chest pain, unspecified; Hypertensive Emergency . Bed requested for Telemetry/MedSurg (observation). Status is Observation. Condition is Stable. Problem is new. Symptoms have improved. UTI on Admission? No. jr8 19:55 18:06 09/15/2018 16:58 Hospitalization Ordered by Pati Ward MD for Observation. hj Preliminary diagnosis is Chest pain, unspecified; Hypertensive Emergency . Bed requested for Telemetry/MedSurg (observation). Status is Observation. Condition is Stable. Problem is new. Symptoms have improved. UTI on Admission? No. dw
[2018-09-15] MEDS ORDERED: ENALAPRILAT 1.25 MG/ML VIAL IV ONE (17:05)
--- NOTE | 2018-09-15 17:10 | RAD REPORT ---
EXAM DESCRIPTION: RAD - Chest Single View - 09/15/2018 4:31 pm CLINICAL HISTORY: CHEST PAIN Chest pain. COMPARISON: Chest Single View dated 02/13/2018; CHEST SINGLE VIEW dated 06/01/2015; CHEST SINGLE VIEW d ated 05/31/2015; CHEST PA AND LAT 2 VIEW dated 06/08/2012 FINDINGS: Portable technique limits examination quality. The lungs are grossly clear. The heart is normal in size. No displaced fractures. IMPRESSION: No acute intrathoracic process suspected.
[2018-09-15 17:11] LABS: Urine Blood NEGATIVE (NEG); Urine Glucose NEGATIVE (NEG); Urine Protein NEGATIVE (NEG); Urine Specific Gravity 1.015 (1.005-1.030)
[2018-09-15] MEDS ORDERED: D50W 25 GM/50 ML SYRINGE IV PRN (20:23)
[2018-09-15] MEDS ORDERED: NITROGLYCERIN 1 GM PKT TD SCH (20:23)
[2018-09-15] MEDS ORDERED: ONDANSETRON 4 MG/2 ML VIAL IV PRN (20:23)
[2018-09-15] MEDS ORDERED: GLUCAGON 1 MG/VIAL IM PRN (20:23)
[2018-09-15] MEDS ORDERED: ACETAMINOPHEN 500 MG TAB PO PRN (20:23)
[2018-09-15] MEDS: INSULIN -REGULAR HUMAN 50 UNIT/0.5 ML ML SQ SCH (21:00)
[2018-09-15 22:25] LABS: Urine Appearance CLEAR; Urine Bilirubin NEGATIVE (NEG); Urine Blood NEGATIVE (NEG); Urine Color YELLOW; Urine Glucose NEGATIVE (NEG); Urine Protein NEGATIVE (NEG)
[2018-09-15 22:30] LABS: Urine Microscopic Reflex ORDER UMIC
[2018-09-15 23:14] VITALS: BMI 23.6
[2018-09-15 23:38] LABS: Urine Bacteria <20 /HPF (<20); Urine Culture Reflex Order REFLEXED; Urine RBC NONE SEEN /HPF (NONE SEEN)
[2018-09-16 05:42] LABS: Absolute Lymphocytes (CBC) 2.5 K/uL (0.7-4.9); Absolute Monocytes 0.5 K/uL (0.1-1.3); Absolute Neutrophil 2.9 K/uL (1.8-8.0); Basophils % 0.9 % (0-1.3); Eosinophils % 3.9 % (0-4.4); Hematocrit 35.4 % (36.0-45.0); Lymphocytes % 39.8 % (15.3-44.8); MCH 30.1 pg (27.0-35.0); MCV 87.5 fL (80-100); MPV 9.9 fL (7.6-11.3); Monocytes % 8.5 % (3.3-12.3); RBC Red Blood Cell Count 4.05 M/uL (3.86-4.86)
[2018-09-16 05:55] LABS: BUN Blood Urea Nitrogen 15 mg/dL (7-18); Bicarbonate 30 mmol/L (21-32); Glucose Level 94 mg/dL (74-106); Potassium 3.7 mmol/L (3.5-5.1); Sodium Level 143 mmol/L (136-145)
--- NOTE | 2018-09-16 06:18 | EKG ---
Test Date: 2018-09-15 Test Time: 15:49:45 Student Recruiter: KATHLEEN MEASUREMENT RESULTS: Intervals: Rate: 60 DC: 166 QRSD: 88 QT: 414 QTc: 414 [place]: P: 33 DC: 166 QRS: 70 T: 66 INTERPRETIVE STATEMENTS: Normal sinus rhythm Normal ECG Compared to ECG 02/14/2018 05:28:10 Sinus bradycardia no longer present ST (T wave) deviation no longer present Electronically Signed On 09-16-18 06:17:07 INCOME TAX ADMINISTRATOR by Abram Ivan
--- NOTE | 2018-09-16 06:20 | P.HP ---
Certification for Inpatient Patient admitted to: Observation With expected LOS: <2 Midnights Patient will require the following post-hospital care: None Practitioner: I am a practitioner with admitting privileges, knowledge of patient current condition, hospital course, and medical plan of care. Services: Services provided to patient in accordance with Admission requirements found in Title 42 Section 412.3 of the Code of Federal Regulations Patient History Date of Service: 09/15/18 Reason for admission: Chest pain rule out acute coronary syndrome History of Present Illness: Patient is a 67-year-old female came into the hospital with chest pain. Patient' s pain has been going on for the last week. Patient's chest pain is felt along the anterior chest wall and it goes to the right arm. Patient was nauseated as well. Patient has some squeezing in the chest. Patient's pain became more severe so she decided to come into the emergency room for further evaluation. In the emergency room patient had initial troponins as well as the EKG which did not reveal any significant abnormalities. Patient does have multiple risk factors including hypertension, diabetes, dyslipidemia, tobacco use in the past , and family history. Patient will be admitted to the hospital for further workup. Allergies soy Allergy (Verified 09/15/18 20:33) Anaphylaxis Home Medications: Lisinopril [Prinivil] 20 mg PO BID 09/15/18 hydroCHLOROthiazide [Hydrochlorothiazide*] 12.5 mg PO DAILY 09/15/18 - Past Medical/Surgical History Has patient received pneumonia vaccine in the past: No Diabetic: Yes -: HTN -: DM-1 -: Hyperlipidemia -: Hysterectomy - Family History Father Medical History: Diabetes Mother Medical History: Heart disease, Hypertension, Diabetes, Cancer Brother Medical History: Diabetes Sister Medical History: Diabetes - Social History Smoking Status: Former smoker Alcohol use: Yes CD- Drugs: No Caffeine use: Yes Place of Residence: Home Review of Systems 10-point ROS is otherwise unremarkable Physical Examination - Vital Signs Temperature: 97.9 F Blood Pressure: 119/56 Pulse: 60 Respirations: 16 Pulse Ox (%): 96 - Physical Exam General: Alert, In no apparent distress, Oriented x3 HEENT: Atraumatic, PERRLA, Mucous membr. moist/pink, EOMI, Sclerae nonicteric Neck: Supple, No LAD, Without JVD or thyroid abnormality, Bruit Respiratory: Clear to auscultation bilaterally, Normal air movement Cardiovascular: Regular rate/rhythm, Normal S1 S2, Systolic murmur Gastrointestinal: Normal bowel sounds, Soft and benign, Non-distended, No tenderness Musculoskeletal: No clubbing, No swelling, No tenderness Integumentary: No rashes Neurological: Normal gait, Normal speech, Normal strength at 5/5 x4 extr, Normal tone, Sensation intact, Cranial nerves 3-12 intact, Normal affect Lymphatics: No axilla or inguinal lymphadenopathy - Studies Laboratory Data (last 24 hrs) 09/15/18 15:55: PT 10.9, INR 0.92 09/15/18 15:55: WBC 7.5, Hgb 13.3, Hct 38.7, Plt Count 267 09/15/18 15:55: Sodium 142, Potassium 3.8, BUN 15, Creatinine 0.70, Glucose 100 , Magnesium 1.9, Total Bilirubin 0.4, AST 30, ALT 32, Alkaline Phosphatase 59 Assessment & Plan - Problems (Diagnosis) (1) Chest pain, rule out acute myocardial infarction Current Visit: Yes Status: Acute (2) Hyperlipidemia Current Visit: Yes Status: Acute (3) Has used tobacco within prior three months Current Visit: Yes Status: Acute (4) Family history of early CAD Current Visit: Yes Status: Acute (5) Diabetes mellitus Onset Date: 06/03/15 Current Visit: No Status: Acute Qualifiers: Diabetes mellitus type: type 2 Diabetes mellitus ocean transportation intermediary insulin use: without ocean transportation intermediary use Diabetes mellitus complication status: with unspecified complications Qualified Code(s): E11.8 - Type 2 diabetes mellitus with unspecified complications (6) Hypertension, uncontrolled Onset Date: 06/03/15 Current Visit: No Status: Acute - Plan 1. Serial troponins and EKG 2. Cardiology consultation 3. Echocardiogram, carotid Doppler, and further recommendation per cardiology 4. Anti-platelet therapy, anti coagulation, beta-keith, statin, and O2 as needed 5. IV morphine for pain 6. Nitro p.r.n. 7. GI and DVT prophylaxis Discharge Plan: Home Plan to discharge in: Greater than 2 days - Advance Directives Does patient have a Living Will: No Does patient have a Durable POA for Healthcare: No - Code Status/Comfort Care Code Status Assessed: Yes Code Status: Full Code Critical Care: No Time Spent Managing PTS Care (In Minutes): 50
[2018-09-16] MEDS: INSULIN -REGULAR HUMAN 50 UNIT/0.5 ML ML SQ SCH ×3 (07:24→16:50)
[2018-09-16 08:32] VITALS: BP 154/68; TEMP 99.2
[2018-09-16] MEDS ORDERED: ASPIRIN EC 81 MG TAB PO SCH (09:00)
--- NOTE | 2018-09-16 13:36 | RAD REPORT ---
EXAM DESCRIPTION: US - CP - 09/16/2018 12:56 pm CLINICAL HISTORY: Chest pain, syncope COMPARISON: None. TECHNIQUE: Real-time sonographic evaluation of both carotid systems was performed. Ellis scale and Do ppler interrogation were performed with waveform tracing bilaterally. FINDINGS: Normal high resistance waveforms are noted in both external carotid arteries. The common c arotid arteries and internal carotid arteries show normal low resistance waveforms. The right-sided common carotid and internal carotid calcified plaquing changes are present. There is additional tortuosity of the right ICA. The plaquing in tortuosity combine to elevate distal ICA [place] to 142 cm/second. In elevated 1.9 right-side ICA/CCA ratio was calculated. Left-sided velocity v alues and ratios are normal range. No significant plaquing on the left. Antegrade flow seen in both vertebral arteries. Velocity values and ratios were recorded and are retained in the patient's imaging records. IMPRESSION: Right-sided calcified and noncalcified plaquing changes are present along with ICA tortu osity. Right-sided stenosis approximately 50% is suspected. Tortuosity of the vessel likely exaggerates ivana shu.
--- NOTE | 2018-09-16 14:24 | CON ---
History Of Present Illness: Ms. Conde has been having chest pain for several months. It got worse and they decided to come to the hospital. She has noted that whenever her blood pressure gets out of control, she feels tight in the chest, and once the blood pressure comes down, it is better. Dr. Adarsh martinez tried to put her on a blood pressure medicine, but she did not take it, did not buy it because i t was overly expensive. She is best on lisinopril with often very poor blood pressure control and se ems to be episodic, and when it gets in the 190-200 systolic, she will have tightness in the chest. Since she has been here in the hospital, cardiac enzymes are normal. The electrocardiogram is normal . The patient has never had myocardial infarction or stroke. She has had hypertension for 20 years, diabetes for 20 years. She feels like her diabetes is under good control. She did not take a lipid medication. Her most recent hemoglobin A1c was 6.8. She uses no tobacco, alcohol, or illegal drugs . Physical Examination: General: 5 feet 2, 128 pounds. HEENT: Normal. Carotids no bruit. Lungs: Clear. Heart: Within normal limits. Abdomen: Soft. Extremities: Normal. No cyanosis, clubbing, or edema. Distal pulses normal. Impression: The patient is probably having noncardiac pain. We should be able to get her blood pres sure under good control, release her, and she could do an outpatient stress test to see if there is any significant coronary heart dis ease or not. DYLLAN/MANUEL Voice ID: [id number] Report ID: [id number]
--- NOTE | 2018-09-16 16:00 | P.SSS ---
Patient History Date of Service: 09/16/18 Reason for admission: Chest pain rule out acute coronary syndrome History of Present Illness: Patient is a 67-year-old female came into the hospital with chest pain. Patient' s pain has been going on for the last week. Patient's chest pain is felt along the anterior chest wall and it goes to the right arm. Patient was nauseated as well. Patient has some squeezing in the chest. Patient's pain became more severe so she decided to come into the emergency room for further evaluation. In the emergency room patient had initial troponins as well as the EKG which did not reveal any significant abnormalities. Patient does have multiple risk factors including hypertension, diabetes, dyslipidemia, tobacco use in the past , and family history. Patient will be admitted to the hospital for further workup. Allergies soy Allergy (Verified 09/15/18 20:33) Anaphylaxis Home Medications: Lisinopril [Prinivil*] 20 mg PO BID 09/15/18 Carvedilol [Coreg*] 12.5 mg PO BID 09/16/18 Rosuvastatin Calcium 20 mg PO DAILY 09/16/18 Saxagliptin HCl/Metformin HCl [Kombiglyze Xr 2.5-1,000 mg Tab] 1 tab PO BID hydroCHLOROthiazide [Hydrochlorothiazide*] 25 mg PO DAILY #30 cap 09/16/18 - Past Medical/Surgical History Has patient received pneumonia vaccine in the past: No Diabetic: Yes -: HTN -: DM-1 -: Hyperlipidemia -: Hysterectomy - Family History Father -: Diabetes Mother -: Heart disease, Hypertension, Diabetes, Cancer Brother -: Diabetes Sister -: Diabetes - Social History Smoking Status: Former smoker Alcohol use: Yes CD- Drugs: No Caffeine use: Yes Place of Residence: Home Review of Systems 10-point ROS is otherwise unremarkable Physical Examination - Vital Signs Temperature: 99.2 F Blood Pressure: 154/68 Pulse: 57 Respirations: 18 Pulse Ox (%): 96 - Physical Exam General: Alert, In no apparent distress HEENT: Atraumatic, PERRLA, Mucous membr. moist/pink, EOMI, Sclerae nonicteric Neck: Supple, 2+ carotid pulse no bruit, No LAD, Without JVD or thyroid abnormality Respiratory: Clear to auscultation bilaterally, Normal air movement Cardiovascular: Regular rate/rhythm, Normal S1 S2 Gastrointestinal: Normal bowel sounds, No tenderness Musculoskeletal: No tenderness Integumentary: No rashes Neurological: Normal gait, Normal speech, Normal strength at 5/5 x4 extr, Normal tone, Normal affect Lymphatics: No axilla or inguinal lymphadenopathy - Studies Laboratory Data (last 24 hrs) 09/15/18 15:55: PT 10.9, INR 0.92 09/15/18 15:55: WBC 7.5, Hgb 13.3, Hct 38.7, Plt Count 267 09/15/18 15:55: Sodium 142, Potassium 3.8, BUN 15, Creatinine 0.70, Glucose 100 , Magnesium 1.9, Total Bilirubin 0.4, AST 30, ALT 32, Alkaline Phosphatase 59 - Diagnosis (Problem(s)) (1) Chest pain, rule out acute myocardial infarction Current Visit: Yes Status: Acute (2) Family history of early CAD Current Visit: Yes Status: Acute (3) Has used tobacco within prior three months Current Visit: Yes Status: Acute (4) Hyperlipidemia Current Visit: Yes Status: Acute (5) Diabetes mellitus Onset Date: 06/03/15 Current Visit: No Status: Acute Qualifiers: Diabetes mellitus type: type 2 Diabetes mellitus longwall headgate operator insulin use: without longwall headgate operator use Diabetes mellitus complication status: with unspecified complications Qualified Code(s): E11.8 - Type 2 diabetes mellitus with unspecified complications (6) Hypertension, uncontrolled Onset Date: 06/03/15 Current Visit: No Status: Acute Treatment Summary: Overall during the hospital stay patient remained stable The patient was initially admitted to the hospital for chest pain most likely secondary to hypertensive urgency. Patient was started on medication while here in the hospital. Cardiology was consulted who recommended the patient have pressure being managed by increasing 1 of her blood pressure medication. Patient does take hydrochlorothiazide at 12.5 at home and thus was asked to increase it to 25 mg at home. 7 full 20 was resumed and was asked to be continued once upon discharge. Patient also takes beta-keith which was also continued on discharge. Patient had resolution of her chest pain and her blood pressure did stabilize here in the hospital was discharged home under stable condition. Patient was asked to follow up with cardiology in about 1-2 days post discharge to get set up for outpatient stress test. - Disposition Disposition: ROUTINE DISCHARGE Condition: GOOD Patient Discharge Instructions: Please f.u with PCP in 1 to 2 week post discharge. You were admitted to the hosptial for chest pain most likely secondary to year her elevated blood pressure. You are asked to increase her hydrochlorothiazide to 25 mg daily instead of 12.5 mg daily. Please follow up with a primary care provider and have a blood pressure log so that the blood pressure medication can be adjusted accordingly. You will also need to follow up with cardiology to get an outpatient stress test done. Diet: Regular Activity: Ad jazmine
[2018-09-16 17:09] VITALS: O2SAT 95
--- NOTE | 2018-09-17 07:04 | EKG ---
Test Date: 2018-09-16 Test Time: 08:55:12 Weatherization And Housing Inspector: BRYNN MEASUREMENT RESULTS: Intervals: Rate: 57 TN: 178 QRSD: 82 QT: 430 QTc: 418 [place]: P: 4 TN: 178 QRS: 49 T: 72 INTERPRETIVE STATEMENTS: Sinus bradycardia Otherwise normal ECG Compared to ECG 09/15/2018 15:49:45 Sinus rhythm no longer present Electronically Signed On 09-17-18 07:03:37 KITCHEN DESIGNER by Abram Ivan
== END 2018-09-16 18:57 | disposition home or self-care (01) ==
LOC: ER 15:37 → ERHOLD 17:00 → 4TH 19:44
PROVIDERS: ADMIT Family Medicine; ATTEND Hospitalist
DX: R07.9 Chest pain, unspecified (principal); E78.5 Hyperlipidemia, unspecified; I10 Essential (primary) hypertension; E10.9 Type 1 diabetes mellitus without complications; Z87.891 Personal history of nicotine dependence; Z82.49 Family history of ischemic heart disease and other diseases of the circulatory system
CPT/HCPCS: 36415; 71045; 80048; 80076; 81003; 81015; 82962; 83735; 83880; 84484; 85025; 85610; 87086; 87088; 93005; 93880; 96374; 99285; G0378

== ENCOUNTER 2019-07-15 06:20 | Emergency (ER) | payer BC, OTHER ==
[2019-07-15 07:00] LABS: Basophils % 0.5 % (0-1.3); Hematocrit 37.8 % (36.0-45.0); Lymphocytes % 32.1 % (15.3-44.8); RBC Red Blood Cell Count 4.33 M/uL (3.86-4.86)
[2019-07-15] MEDS ORDERED: FENTANYL CITR 100 MCG/2 ML ONE ×2 (07:01→09:09)
[2019-07-15] MEDS ORDERED: DIAZEPAM 10 MG/2 ML INJ SYRINGE ONE (07:01)
[2019-07-15] MEDS ORDERED: NA CHLORIDE 0.9% 1,000 ML ONE (07:01)
[2019-07-15 07:07] LABS: Protime INR 0.96
[2019-07-15] MEDS ORDERED: NA CHLORIDE 0.9% 500 ML ONE (07:14)
[2019-07-15 08:00] LABS: ALT/SGPT 77 U/L (12-78); AST/SGOT 55 U/L (15-37); Alkaline Phosphatase 53 U/L (45-117); BUN Blood Urea Nitrogen 16 mg/dL (7-18); Bicarbonate 28 mmol/L (21-32); Bilirubin Direct 0.1 mg/dL (0-0.2); Bilirubin Total 0.4 mg/dL (0.2-1.0); Glucose Level 117 mg/dL (74-106); Magnesium 1.8 mg/dL (1.8-2.4); NT PRO-BNP 30 pg/mL (<125); Potassium 3.8 mmol/L (3.5-5.1); Protein, Total 8.1 g/dL (6.4-8.2); Sodium Level 142 mmol/L (136-145); Troponin (Emerg Dept Use Only) < 0.02 ng/mL (0.0-0.045)
--- NOTE | 2019-07-15 08:46 | RAD REPORT ---
EXAM DESCRIPTION: CT - Angio Aorta For Dissection - 07/15/2019 8:36 am CLINICAL HISTORY: Chest pain radiating to the back. DISSECTION COMPARISON: <Comparisons> TECHNIQUE: CT angiography of the aorta was performed with MIPs. All CT scans are performed using dose optimization technique as appropriate and may include automated exposure control or mA/KV adjustment according to patient size. FINDINGS: A left aortic arch is present with normal branching pattern of the great vessels.No acute aortic finding is seen such as aneurysm, penetrating ulcer or dissection. The celiac axis, SMA, REGAN and renal arteries show mild atherosclerotic plaquing at the vessel ostia but are patent. No evidence of pulmonary embolism. The lungs are clear. The liver demonstrates fatty infiltration.The spleen, pancreas, adrenal glands and kidneys are within normal limits for arterial phase imaging. No bowel obstruction, free fluid or abscess.Normal appendix.No pathologic enlarged lymphadenopathy id entified. No fracture or worrisome bone lesion seen. IMPRESSION: No acute aortic finding is demonstrated.
--- NOTE | 2019-07-15 08:56 | ER ---
Nurse's Notes [facility] [place] Name: Felisha Conde Age: 68 yrs Sex: Female : 1950 Arrival Date: 07/15/2019 Time: 06:21 Bed 16 Private MD: Diagnosis: Back pain/spasm Presentation: 07/15 06:13 Presenting complaint: EMS states: Pt reports intermittent back spasms that come in jb4 waves. 06:13 Transition of care: patient was not received from another setting of care. Onset of jb4 symptoms was July 15, 2019. Risk Assessment: Do you want to hurt yourself or someone else? Patient reports no desire to harm self or others. Initial Sepsis Screen: Does the patient meet any 2 criteria? No. Patient's initial sepsis screen is negative. Does the patient have a suspected source of infection? No. Patient's initial sepsis screen is negative. Care prior to arrival: Glucose check: 116. 06:13 Method Of Arrival: EMS: [facility] 06:13 Acuity: MIRANDA 3 jb4 Historical: - Allergies: 06:13 Soy; jb4 - Home Meds: 06:13 Kombiglyze XR 2.5-1,000 mg Oral TM24 1 tab once daily for Type 2 Diabetes Mellitus jb4 [Active]; rosuvastatin 10 mg oral tab 1 tab once daily [Active]; repaglinide 1 mg oral tab 1 tab 3 times per day [Active]; glimepiride 2 mg Oral tab 1 tab once daily [Active]; hydrochlorothiazide 12.5 mg Oral cap 2 caps once daily [Active]; valacyclovir 500 mg Oral tab 1 tab 2 times per day [Active]; quhwkcuuyp-fpehoazcat-gvgmtxevdyasvvzrrmk oral oral [Active]; - PMHx: 06:13 Diabetes - NIDDM; Hyperlipidemia; Hypertension; jb4 - PSHx: 06:13 Hysterectomy; jb4 - Immunization history:: Adult Immunizations up to date. - Social history:: Smoking status: Patient/guardian denies using tobacco, Patient/guardian denies using alcohol. - Ebola Screening: : No symptoms or risks identified at this time. Screenin:13 Abuse screen: Denies threats or abuse. Nutritional screening: No deficits noted. jb4 Tuberculosis screening: No symptoms or risk factors identified. Fall Risk IV access (20 points). Total Key Fall Scale indicates No Risk (0-24 pts). Assessment: 06:13 General: Appears in no apparent distress. uncomfortable, Behavior is calm, cooperative, jb4 appropriate for age. Pain: Complains of pain in back Pain does not radiate. Pain currently is 10 out of 10 on a pain scale. Quality of pain is described as crampy, stabbing. Neuro: Level of Consciousness is awake, alert, obeys commands, Oriented to person, place, time, situation. Cardiovascular: Patient's skin is warm and dry. Respiratory: Airway is patent Respiratory effort is even, unlabored, Respiratory pattern is regular, symmetrical. GI: No deficits noted. No signs and/or symptoms were reported involving the gastrointestinal system. : No deficits noted. No signs and/or symptoms were reported regarding the genitourinary system. EENT: No deficits noted. No signs and/or symptoms were reported regarding the EENT system. Derm: Skin is intact, Skin is pink, warm \T\ dry. Musculoskeletal: Circulation, motion, and sensation intact. Range of motion: intact in all extremities. 07:10 Reassessment: Pt experienced decreased level of consciousness after Valium jb4 administration. Provider notified, Fentanyl held. Pt is drowsy. Is oriented to self, location, time, and situation. Respirations are shallow, even and unlabored. 07:10 General: Appears in no apparent distress. Behavior is Decreased level of conscience rb1 after Valium administration by SANTO Plascencia. Janny was notified and assessed the pt. Pt. responds when spoken to and answers questions appropriately. . Neuro: Level of Consciousness is lethargic, Oriented to person, place, time, situation. Cardiovascular: Capillary refill < 3 seconds is brisk in bilateral fingers. Respiratory: Airway is patent Respiratory effort is shallow, Respiratory pattern is regular, symmetrical. GI: No signs and/or symptoms were reported involving the gastrointestinal system. : No signs and/or symptoms were reported regarding the genitourinary system. Derm: Skin is pink, warm \T\ dry. 07:33 Reassessment: Vial of Fentanyl wasted due to intent to give. Held due to decrease level jb4 of consciousness after Valium administration. Vial intact, no medication withdrawn, taken to pharmacy per pharmacy guidelines. 07:52 Reassessment: Pt. son requested pain medication for his mother, he reports that she is rb1 more awake now. Provider notified, no new orders received at this time. 08:00 Reassessment: Patient appears in no apparent distress at this time. Patient and/or rb1 family updated on plan of care and expected duration. Pain level reassessed. Patient is alert, oriented x 3, equal unlabored respirations, skin warm/dry/pink. 09:00 Reassessment: Patient appears in no apparent distress at this time. Patient and/or rb1 family updated on plan of care and expected duration. Pain level reassessed. Patient is alert, oriented x 3, equal unlabored respirations, skin warm/dry/pink. 09:14 Reassessment: Discharge pending due to Fentanyl administration. rb1 Vital Signs: 06:13 BP 161 / 88; Pulse 70; Resp 16; Temp 98.0(O); Pulse Ox 100% on R/A; Weight 61.23 kg jb4 (R); Height 5 ft. 1 in. (154.94 cm) (R); Pain 10/10; 07:00 BP 179 / 76; Pulse 65; Resp 14; Pulse Ox 100% on R/A; Pain 10/10; rb1 08:00 BP 148 / 73; Pulse 65; Resp 13; Temp 98.1(O); Pulse Ox 100% ; Pain 10/10; rb1 09:00 BP 169 / 81; Pulse 70; Resp 15; Temp 98.3(O); Pulse Ox 100% on R/A; Pain 10/10; rb1 09:35 BP 161 / 79; Pulse 66; Resp 12; Pulse Ox 99% on R/A; Pain 9/10; rb1 06:13 Body Mass Index 25.51 (61.23 kg, 154.94 cm) jb4 ED Course: 06:13 Arm band placed on right wrist. jb4 06:13 Patient has correct armband on for positive identification. Bed in low position. Call jb4 light in reach. Side rails up X 1. Pulse ox on. NIBP on. Warm blanket given. 06:21 Patient arrived in ED. ds1 06:23 Quita Soliman [facility]C [facility]. snw 06:23 Betito Huerta MD is Attending Physician. snw 06:24 Koosharem, Magno, RN is Primary Nurse. jb4 06:33 Triage completed. jb4 07:56 Radiology exam delayed due to lab results not completed at this time. (BUN/Creatinine). kw1 08:29 CT completed. Patient tolerated procedure well. Patient moved back from CT. bq 08:36 CT Aorta for Dissection In Process Unspecified. EDMS 09:40 No provider procedures requiring assistance completed. IV discontinued, intact, rb1 bleeding controlled, No redness/swelling at site. Pressure dressing applied, Pt. has a 20 g in the left AC that was inserted by the night filler. Administered Medications: 07:00 Drug: NS 0.9% 1000 ml Route: IV; Rate: 125 ml/hr; Site: left forearm; jb4 09:35 Follow up: IV Status: Completed infusion rb1 07:00 Drug: Valium 5 mg Route: IVP; Site: left forearm; jb4 07:32 Follow up: Response: No adverse reaction; Pain is decreased; RASS: Drowsy (-1) jb4 07:31 Not Given (RASS score of -1 after valium administration.): fentaNYL (PF) 25 mcg IVP jb4 once; RASS on ADMIN: Combtv4, Very Agttd3, Agttd2, Rstlss1, AlertClm0, Drwsy-1, Lt Sdtn-2, Mod Sdtn-3, Dp Sdtn-4, UnArsble-5 09:14 Drug: fentaNYL (PF) 25 mcg Route: IVP; Site: left antecubital; rb1 09:35 Follow up: Response: No adverse reaction; Pain is decreased rb1 Outcome: 08:55 Discharge ordered by . snw 09:40 Patient left the ED. em 09:40 Discharged to home via wheelchair, with family. rb1 09:40 Condition: stable 09:40 Discharge instructions given to patient, Instructed on discharge instructions, follow up and referral plans. medication usage, Demonstrated understanding of instructions, follow-up care, medications, Prescriptions given X 2. Signatures: Dispatcher [employer] EDWI Quita Soliman, EV[employer] HOUSE SITTER-Csnw Milli Santamaria bq Yogi, Ashish, TRANSPLANT NURSE PRACTITIONER TRANSPLANT NURSE PRACTITIONER em Eric, Keily ds1 Eleanor Churchill, RN RN rb1 Magno Thorne RN RN jb4 Star, Malu kw1
--- NOTE | 2019-07-15 08:56 | EDPHYS ---
Physician Documentation [facility] Name: Felisha Conde Age: 68 yrs Sex: Female : 1950 Arrival Date: 07/15/2019 Time: 06:21 Bed 16 Private MD: ED Physician Betito Huerta HPI: 07/15 07:19 This 68 yrs old Female presents to ER via EMS with complaints of Back Spasms. snw 07:19 The patient presents with pain that is acute, with no known mechanism of injury. The snw symptoms are located in the thoracic spine and lumbar spine. Onset: The symptoms/episode began/occurred gradually, 1 week(s) ago, and became worse this morning, and became persistent. The pain radiates to the abdomen. The problem was sustained from unknown cause. Severity of symptoms: At their worst the symptoms were severe, incapacitating. It is unknown whether or not the patient has had similar symptoms in the past. It is unknown whether or not the patient has recently seen a physician. Historical: - Allergies: 06:13 Soy; jb4 - Home Meds: 06:13 Kombiglyze XR 2.5-1,000 mg Oral TM24 1 tab once daily for Type 2 Diabetes Mellitus jb4 [Active]; rosuvastatin 10 mg oral tab 1 tab once daily [Active]; repaglinide 1 mg oral tab 1 tab 3 times per day [Active]; glimepiride 2 mg Oral tab 1 tab once daily [Active]; hydrochlorothiazide 12.5 mg Oral cap 2 caps once daily [Active]; valacyclovir 500 mg Oral tab 1 tab 2 times per day [Active]; zikblsqjwb-jawtachmvy-qhrblcdnvarncjjhdcn oral oral [Active]; - PMHx: 06:13 Diabetes - NIDDM; Hyperlipidemia; Hypertension; jb4 - PSHx: 06:13 Hysterectomy; jb4 - Immunization history:: Adult Immunizations up to date. - Social history:: Smoking status: Patient/guardian denies using tobacco, Patient/guardian denies using alcohol. - Ebola Screening: : No symptoms or risks identified at this time. ROS: 07:18 Constitutional: Negative for fever, chills, and weight loss, Eyes: Negative for injury, snw pain, redness, and discharge, ENT: Negative for injury, pain, and discharge, Neck: Negative for injury, pain, and swelling, Cardiovascular: Negative for chest pain, palpitations, and edema, Respiratory: Negative for shortness of breath, cough, wheezing, and pleuritic chest pain, Abdomen/GI: Negative for abdominal pain, nausea, vomiting, diarrhea, and constipation, : Negative for injury, bleeding, discharge, and swelling, MS/Extremity: Negative for injury and deformity, Skin: Negative for injury, rash, and discoloration, Neuro: Negative for headache, weakness, numbness, tingling, and seizure. 07:18 Back: Positive for pain at rest, pain with movement, radiated pain, of the radiates to abdomen. Exam: 07:17 Head/Face: Normocephalic, atraumatic. Eyes: Pupils equal round and reactive to light, snw extra-ocular motions intact. Lids and lashes normal. Conjunctiva and sclera are non-icteric and not injected. Cornea within normal limits. Periorbital areas with no swelling, redness, or edema. ENT: Nares patent. No nasal discharge, no septal abnormalities noted. Tympanic membranes are normal and external auditory canals are clear. Oropharynx with no redness, swelling, or masses, exudates, or evidence of obstruction, uvula midline. Mucous membranes moist. Neck: Trachea midline, no thyromegaly or masses palpated, and no cervical lymphadenopathy. Supple, full range of motion without nuchal rigidity, or vertebral point tenderness. No Meningismus. +2cm JVD Chest/axilla: Normal chest wall appearance and motion. Nontender with no deformity. No lesions are appreciated. Cardiovascular: Regular rate and rhythm with a normal S1 and S2. No gallops, murmurs, or rubs. Normal PMI, no JVD. No pulse deficits. Respiratory: Lungs have equal breath sounds bilaterally, clear to auscultation and percussion. No rales, rhonchi or wheezes noted. No increased work of breathing, no retractions or nasal flaring. Skin: Warm, dry with normal turgor. Normal color with no rashes, no lesions, and no evidence of cellulitis. MS/ Extremity: Pulses equal, no cyanosis. Neurovascular intact. Full, normal range of motion. Neuro: Awake and alert, GCS 15, oriented to person, place, time, and situation. Cranial nerves II-XII grossly intact. Motor strength 5/5 in all extremities. Sensory grossly intact. Cerebellar exam normal. Normal gait. Psych: Awake, alert, with orientation to person, place and time. Behavior, mood, and affect are within normal limits. 07:17 Constitutional: The patient appears alert, awake, in obvious pain, uncomfortable. 07:17 Abdomen/GI: Inspection: abdomen appears normal, Bowel sounds: normal, Palpation: mild abdominal tenderness, in all quadrants, states pressure radiates pain to back - "spine". 07:17 Back: pain, that is moderate, that is severe, muscle spasm, is appreciated in the left low back, left mid back, right mid back and right low back. Vital Signs: 06:13 BP 161 / 88; Pulse 70; Resp 16; Temp 98.0(O); Pulse Ox 100% on R/A; Weight 61.23 kg jb4 (R); Height 5 ft. 1 in. (154.94 cm) (R); Pain 10/10; 07:00 BP 179 / 76; Pulse 65; Resp 14; Pulse Ox 100% on R/A; Pain 10/10; rb1 08:00 BP 148 / 73; Pulse 65; Resp 13; Temp 98.1(O); Pulse Ox 100% ; Pain 10/10; rb1 09:00 BP 169 / 81; Pulse 70; Resp 15; Temp 98.3(O); Pulse Ox 100% on R/A; Pain 10/10; rb1 09:35 BP 161 / 79; Pulse 66; Resp 12; Pulse Ox 99% on R/A; Pain 9/10; rb1 06:13 Body Mass Index 25.51 (61.23 kg, 154.94 cm) jb4 MDM: 06:42 Patient medically screened. snw 08:58 Data reviewed: vital signs, nurses notes. Data interpreted: Pulse oximetry: on room air snw is 100 %. Interpretation: normal. Counseling: I had a detailed discussion with the patient and/or guardian regarding: the historical points, exam findings, and any diagnostic results supporting the discharge/admit diagnosis, the presence of at least one elevated blood pressure reading (>120/80) during this emergency department visit, lab results, radiology results, the need for outpatient follow up, for definitive care, to return to the emergency department if symptoms worsen or persist or if there are any questions or concerns that arise at home. Response to treatment: the patient's symptoms have markedly improved after treatment. Special discussion: I have referred the patient to see his PCP for further evaluation of high blood pressure. Based on the history and exam findings, there is no indication for further emergent testing or inpatient evaluation. I discussed with the patient/guardian the need to see the primary care provider for further evaluation of the symptoms. 07/15 06:40 Order name: Basic Metabolic Panel; Complete Time: 08:07 snw 07/15 06:40 Order name: CBC with Diff; Complete Time: 07:16 snw 07/15 06:40 Order name: LFT's; Complete Time: 08:07 snw 07/15 06:40 Order name: Magnesium; Complete Time: 08:07 snw 07/15 06:40 Order name: NT PRO-BNP; Complete Time: 08:07 snw 07/15 06:40 Order name: PT-INR; Complete Time: 07:16 snw 07/15 06:40 Order name: Troponin (emerg Dept Use Only); Complete Time: 08:07 snw 07/15 06:40 Order name: EKG; Complete Time: 06:43 snw 07/15 06:40 Order name: CT Aorta for Dissection; Complete Time: 08:51 snw 07/15 06:40 Order name: Urine Dipstick--Ancillary (enter results); Complete Time: 09:07 em1 07/15 06:40 Order name: Cardiac monitoring; Complete Time: 06:53 snw 07/15 06:40 Order name: EKG - Nurse/Tech; Complete Time: 06:53 snw 07/15 06:40 Order name: IV Saline Lock; Complete Time: 06:53 snw 07/15 06:40 Order name: Labs collected and sent; Complete Time: 06:53 snw 07/15 06:40 Order name: O2 Per Protocol; Complete Time: 06:53 snw 07/15 06:40 Order name: O2 Sat Monitoring; Complete Time: 06:53 snw Administered Medications: 07:00 Drug: NS 0.9% 1000 ml Route: IV; Rate: 125 ml/hr; Site: left forearm; jb4 09:35 Follow up: IV Status: Completed infusion rb1 07:00 Drug: Valium 5 mg Route: IVP; Site: left forearm; jb4 07:32 Follow up: Response: No adverse reaction; Pain is decreased; RASS: Drowsy (-1) jb4 07:31 Not Given (RASS score of -1 after valium administration.): fentaNYL (PF) 25 mcg IVP jb4 once; RASS on ADMIN: Combtv4, Very Agttd3, Agttd2, Rstlss1, AlertClm0, Drwsy-1, Lt Sdtn-2, Mod Sdtn-3, Dp Sdtn-4, UnArsble-5 09:14 Drug: fentaNYL (PF) 25 mcg Route: IVP; Site: left antecubital; rb1 09:35 Follow up: Response: No adverse reaction; Pain is decreased rb1 Disposition: 07/15/19 08:55 Discharged to Home. Impression: Back pain/spasm. - Condition is Stable. - Discharge Instructions: Back Pain, Adult, Muscle Cramps and Spasms, Cryotherapy, Heat Therapy, Rehydration, Elderly, Back Exercises, Back Injury Prevention. - Prescriptions for Tylenol- Codeine #3 300-30 mg Oral Tablet - take 1 tablet by ORAL route every 6 hours As needed; 6 tablet. orphenadrine citrate 100 mg Oral Tablet Sustained Release - take 1 tablet by ORAL route 2 times per day As needed; 20 tablet. - Medication Reconciliation Form, Thank You Letter, Antibiotic Education, Prescription Opioid Use form. - Follow up: Private Physician; When: 2 - 3 days; Reason: Recheck today's complaints, Continuance of care, Re-evaluation by your physician. Follow up: Emergency Department; When: As needed; Reason: Worsening of condition. Addendum: 07/17/2019 09:18 Co-signature as Attending Physician, Betito Huerta MD I agree with the assessment and c chacon plan of care. Signatures: Dispatcher [employer] Betito Scott MD MD cha Therrien, Shelly, GRAPHITE GRINDER-C GRAPHITE GRINDER-Fatmataw Ashish Calix, METALWORKING SPECIALIST METALWORKING SPECIALIST em Elaenor Churchill, RN RN rb1 Magno Thorne, SANTO RN jb4 Corrections: (The following items were deleted from the chart) 07/15 09:40 08:55 07/15/2019 08:55 Discharged to Home. Impression: Back pain/spasm. Condition is em Stable. Forms are Medication Reconciliation Form, Thank You Letter, Antibiotic Education, Prescription Opioid Use. Follow up: Private Physician; When: 2 - 3 days; Reason: Recheck today's complaints, Continuance of care, Re-evaluation by your physician. Follow up: Emergency Department; When: As needed; Reason: Worsening of condition. snw
[2019-07-15 09:02] LABS: Urine Blood NEGATIVE (NEG); Urine Glucose NEGATIVE (NEG); Urine Protein NEGATIVE (NEG)
[2019-07-15 09:45] VITALS: O2SAT 100
[2019-07-15 09:48] VITALS: BP 169/81; TEMP 98.3
--- NOTE | 2019-07-16 13:21 | EKG ---
Test Date: 2019-07-15 Test Time: 06:55:11 Bioinformatics Analyst: WILL MEASUREMENT RESULTS: Intervals: Rate: 69 OH: 182 QRSD: 90 QT: 392 QTc: 420 [place]: P: 44 OH: 182 QRS: 42 T: 70 INTERPRETIVE STATEMENTS: Normal sinus rhythm ST abnormality, possible digitalis effect Abnormal ECG Compared to ECG 09/16/2018 08:55:12 ST (T wave) deviation now present Sinus bradycardia no longer present Electronically Signed On 07-16-19 13:19:05 CDT by Beny Eddy
== END 2019-07-15 09:40 | disposition home or self-care (01) ==
LOC: ER 06:20
DX: M62.830 Muscle spasm of back (principal); E11.9 Type 2 diabetes mellitus without complications; E78.5 Hyperlipidemia, unspecified; I10 Essential (primary) hypertension; Z91.018 Allergy to other foods
CPT/HCPCS: 96361; 93005; 85025; 80048; 36415; 83735; 85610; 80076; 81003; 84484; 83880; 71275; 74175; 96375; 96374; 99284; Q9967; J3360; J3010; J7030

== ENCOUNTER 2019-12-28 16:46 | Emergency (ER) | payer BC, OTHER ==
--- OUTSIDE RECORDS SUMMARY | 2019-12-28 16:48 | XMS REPORT ---
:1950 [facility] [address] [place] [address] Care Team Providers Name Role Phone Unavailable Unavailable Unavailable Payers Payer Name Policy Type Policy Number Effective Date Expiration Date Problems This patient has no known problems. Allergies, Adverse Reactions, Alerts Allergy Name Allergy Status Severity Reaction(s) Onset Inactive Treating Comments Type Date Date Clinician diazepam DA Active SV 2018-10 0 00:00: 00 codeine DA Active SV 2018-10 0 00:00: 00 soy FA Active SV 2018-10 0 00:00: 00 diazepam DA Active SV 07-21 00:00: 00 codeine DA Active SV 07-21 00:00: 00 soy FA Active SV 2018-07-21 00:00: 00 No Known DA Active U 2006-0 Contrast 9-28 Allergies 00:00: 00 No Known Drug DA Active U 2006-0 Allergies 9-28 00:00: 00 No Known Food DA Active U 2006-0 Allergies 9-28 00:00: 00 No Known Other DA Active U 2006-0 Allergies 9-28 00:00: 00 No Known Drug DA Active U 2006-0 Intolerances 7-06 00:00: 00 Medications This patient has no known medications. Results Test Description Test Time Test Comments Text Results Atomic Results Result Comments GLUBED 2019-08-03 06:06:00 Test Item Value Reference Range Comments GLUBED (test code=GLUBED) 261 mg/dL 65-110 Phsician Notified CHEMISTRY 7 [id number] 05:33:00 Test Item Value Reference Range Comments SODIUM (test code=NA) 141 mEq/L 135-145 POTASSIUM (test code=K) 4.3 mEq/L 3.5-5.0 CHLORIDE (test code=CL) 101 mEq/L 100-115 CARBON DIOXIDE (test code=CO2) 27 mEq/L 22-31 ANION GAP (test code=GAP) 16.90 10-20 GLUCOSE (test code=GLU) 365 mg/dL 65-110 Results verified by repeat analysis BLOOD UREA NITROGEN (test 16 mg/dL 7-18 code=BUN) GLOMERULAR FILTRATION RATE 55 ml/min >60 (test code=GFR) CREATININE (test code=CREAT) 1.0 mg/dL 0.5-1.0 CALCIUM (test code=CA) 9.0 mg/dL 8.4-10.2 HGB [id number] 05:18:00 Test Item Value Reference Range Comments HEMOGLOBIN (test code=HGB) 11.2 g/dL 10.7-13.9 HEMATOCRIT (test code=HCT) 33.7 % 32.1-42.1 [id number] 19:14:00 Test Item Value Reference Range Comments GLUBED (test code=GLUBED) 200 mg/dL 65-110 [id number] 14:00:00 Test Item Value Reference Range Comments GLUBED (test code=GLUBED) 105 mg/dL 65-110 - XR CHEST 1 [id number] 12:56:00 Patient Name: AMANDA VARGAS I Unit No: [id number] EXAMS: CPT CODE: [id number] XR CHEST 1 V [id number] EXAM: Single view AP chest. EXAM DATE: 08/02/2019 at 1235 hours CLINICAL HISTORY: PRE-OP COMPARISON: None Cardiomediastinal silhouette is within normal limits. The lungs appear free of acute disease. Degenerative changes are identified in the intrathoracic spine. IMPRESSION: No evidence of acute cardiopulmonary disease. at 1256 Reported and signed by: Ruby Sanford MD CC: Josh Lawler MD Technologist: RT José Trnscrbd D / ([id number]) KimCER Orig Print D/T: S: 08/02/2019 (1300 ) [facility] NAME: AMANDA VARGAS I Radiology Department PHYS: Josh Ortiz MD [address] : 1950 AGE : 68 SEX: F [place], [place] [address] LOC: BL[place]OM PHONE #: [phone] EXAM DATE: 08/02/2019 STATUS: [facility] [place] #: [phone] RAD NO: Page 1 Signed ReportGLYCOSYLATED HEMOGLOBIN [id number] 11:04:00 Test Item Value Reference Range Comments GLYCOSYLATED HEMOGLOBIN 6.7 % 4.8-5.9 Any condition that shortens (HA1C) (test code=GLYHGB) erythocyte survival or decreasesmean erythrocyte age (e.g., recovery from acute blood loss,hemolytic anemia) will falsely lower HGBA1c resultsregardless of the method used. HGBA1c results from patientswith HbSS, HbCC, and HbSc must be interpreted with cautiongiven the pathological processes, including anemia,increased red cell turnover, transfusion requirements, thatadversely impact HGBA1c as a marker of long-term glycemiccontrol. Alternative forms of testing such as fructosamineshould be considered for these patients. MEAN BLOOD GLUCOSE (test 146 MG/DL 70-110 code=MBG) Comments to Saddle Stitch Operator: PLEASE USE SAMPLE FROM YESTERDAY,THANKSGLYCOSYLATED HEMOGLOBIN (HA1C)2019-07-21 11:04:00 Test Item Value Reference Range Comments GLYCOSYLATED HEMOGLOBIN 6.7 % 4.8-5.9 Any condition that shortens (HA1C) (test code=GLYHGB) erythocyte survival or decreasesmean erythrocyte age (e.g., recovery from acute blood loss,hemolytic anemia) will falsely lower HGBA1c resultsregardless of the method used. HGBA1c results from patientswith HbSS, HbCC, and HbSc must be interpreted with cautiongiven the pathological processes, including anemia,increased red cell turnover, transfusion requirements, thatadversely impact HGBA1c as a marker of long-term glycemiccontrol. Alternative forms of testing such as fructosamineshould be considered for these patients. Comments to Saddle Stitch Operator: PLEASE USE SAMPLE FROM YESTERDAY,THANKSCHEMISTRY 7 [id number] 18:04:00 Test Item Value Reference Range Comments SODIUM (test code=NA) 139 mEq/L 135-145 POTASSIUM (test code=K) 4.5 mEq/L 3.5-5.0 CHLORIDE (test code=CL) 100 mEq/L 100-115 CARBON DIOXIDE (test code=CO2) 30 mEq/L 22-31 ANION GAP (test code=GAP) 13.90 10-20 GLUCOSE (test code=GLU) 195 mg/dL 65-110 BLOOD UREA NITROGEN (test code=BUN) 17 mg/dL 7-18 GLOMERULAR FILTRATION RATE (test code=GFR) 72 ml/min >60 CREATININE (test code=CREAT) 0.8 mg/dL 0.5-1.0 CALCIUM (test code=CA) 10.1 mg/dL 8.4-10.2 URINALYSIS [id number] 17:56:00 Test Item Value Reference Range Comments UA COLOR (test code=COLU) YELLOW YELLOW UA APPEARANCE (test code=APPU) CLEAR CLEAR UA GLUCOSE DIPSTICK (test code=DGLUU) NEGATIVE NEG UA BILIRUBIN DIPSTICK (test code=BILU) NEGATIVE NEG UA KETONE DIPSTICK (test code=KETU) NEGATIVE NEG UA SPECIFIC GRAVITY (test code=SGU) 1.010 1.001-1.035 UA BLOOD DIPSTICK (test code=JANNET) NEG NEG UA PH DIPSTICK (test code=MONTSE) 6.0 5-9 UA PROTEIN DIPSTICK (test code=PROU) NEGATIVE NEG UA UROBILINIOGEN DIPSTICK (test code=URO) NEGATIVE mg/dL NEG UA NITRITE DIPSTICK (test code=JUAN) NEG NEG UA LEUKOCYTE ESTERASE DIPSTICK (test TRACE NEG code=LEUU) UA WBC (test code=WBCU) 0-2 #/hpf NONE SEEN UA RBC (test code=RBCU) 0-2 #/hpf NONE SEEN UA EPITHELIAL CELLS (test code=EPIU) RARE #/HPF RARE-FEW UA BACTERIA (test code=BACU) NEGATIVE /HPF RARE-FEW UA MUCUS (test code=MUCU) RARE NONE SEEN URINE SAMPLE: CLEAN CATCHCBC W/AUTO [id number] 17:42:00 Test Item Value Reference Range Comments WHITE BLOOD CELL (test code=WBC) 7.6 K/mm3 6.6-12.1 RED BLOOD CELL (test code=RBC) 4.33 M/mm3 3.45-5.01 HEMOGLOBIN (test code=HGB) 12.7 g/dL 10.7-13.9 HEMATOCRIT (test code=HCT) 38.6 % 32.1-42.1 MEAN CELL VOLUME (test code=MCV) 89 fL 84.1-94.8 MEAN CELL HGB (test code=MCH) 29.3 pg 27-35 MEAN CELL HGB CONCETRATION (test code=MCHC) 32.9 gm/dL 32.2-34.1 RED CELL DISTRIBUTION WIDTH (test code=RDW) 13.5 % 12.4-16.5 PLATELET COUNT (test code=PLT) 320 K/mm3 133-385 IMMATURE PLATELET FRACTION (test code=IPF) 0.0 % 0.0-10.8 MEAN PLATELET VOLUME (test code=MPV) 11.0 fl 9.1-12.7 NEUTROPHIL % (test code=NT%) 59.7 % 56.5-79.4 LYMPHOCYTE % (test code=LY%) 30.0 % 14.3-34.3 MONOCYTE % (test code=MO%) 7.1 % 5.1-10.4 EOSINOPHIL % (test code=EO%) 2.2 % 0.1-3.0 BASOPHIL % (test code=BA%) 0.7 % 0.1-1.0 NEUTROPHIL # (test code=NT#) 4.6 K/mm3 LYMPHOCYTE # (test code=LY#) 2.3 K/mm3 MONOCYTE # (test code=MO#) 0.5 K/mm3 EOSINOPHIL # (test code=EO#) 0.17 K/mm3 BASOPHIL # (test code=BA#) 0.1 K/mm3 RBC MORPHOLOGY REQUIRED (test code=RBCM) NORMAL NORMAL PLATELET MORPHOLOGY REQUIRED (test code=PLTMR) NORMAL NORMAL
--- NOTE | 2019-12-28 18:18 | RAD REPORT ---
EXAM DESCRIPTION: CT - Stone Protocol - 12/28/2019 6:08 pm CLINICAL HISTORY: Abd pain;Flank pain COMPARISON: Stone Protocol dated 10/03/2017 TECHNIQUE: Axial 5 mm thick images were obtained without oral or IV contrast. The [id number] span s the entirety of the system including uppermost abdomen and lung bases. All CT scans are performed using dose optimization technique as appropriate and may include automated exposure control or mA/KV adjustment according to patient size. FINDINGS: No hydronephrosis is present and no obstructing ureteral calculi. No suspicious renal mass es. Isodense masses and pyelonephritis are not excluded on a stone protocol CT scan. Bilateral nonobs tructing calyx calculi are present 2-3 mm in size. No urinary bladder abnormality. Pelvic floor laxit y is present. Uterus is absent. Pelvic floor detail is limited on CT imaging. No significant adrenal finding. Liver shows fatty infiltration. No focal liver lesion. Spleen and pancreas show no suspicious finding s. No gallbladder or biliary tree abnormality identified. No suspicious bowel findings. Appendix is normal. No mass or bulky lymphadenopathy. No free air, free fluid or inflammatory stranding. No significant bony abnormality. IMPRESSION: Nonobstructing calyx calculi. No hydronephrosis or other acute finding. Isodense masses and pyelonephritis are not excluded on stone protocol technique. No acute findings are seen. No substantial change from 2017.
--- NOTE | 2019-12-28 18:29 | EDPHYS ---
Physician Documentation [facility] Name: Felisha Conde Age: 69 yrs Sex: Female : 1950 Arrival Date: 12/28/2019 Time: 16:50 Bed 14 Private MD: ED Physician Santo Rossi HPI: 12/27 18:01 This 69 yrs old Female presents to ER via Ambulatory with complaints of Back kb Pain. 18:01 The patient presents with pain that is acute, with no known mechanism of injury. The kb symptoms are located in the left low back. Onset: The symptoms/episode began/occurred 3 day(s) ago. The pain radiates to the left leg. Associated signs and symptoms: Pertinent positives: abdominal pain. The problem was sustained without known cause. Modifying factors: The patient symptoms are alleviated by nothing, the patient symptoms are aggravated by any movement. Severity of symptoms: At their worst the symptoms were moderate, in the emergency department the symptoms are unchanged. The patient has not experienced similar symptoms in the past. The patient has not recently seen a physician. Pt reports left low back pain that radiates into buttock and down leg. Historical: - Allergies: 17:06 Soy; ss - PMHx: 17:06 Diabetes - NIDDM; Hyperlipidemia; Hypertension; ss - PSHx: 17:06 Hysterectomy; ss - Immunization history:: Adult Immunizations up to date. - Social history:: Smoking status: Patient denies any tobacco usage or history of. ROS: 18:01 Constitutional: Negative for fever, chills, and weight loss, ENT: Negative for injury, kb pain, and discharge, Neck: Negative for injury, pain, and swelling, Cardiovascular: Negative for chest pain, palpitations, and edema, Respiratory: Negative for shortness of breath, cough, wheezing, and pleuritic chest pain, MS/Extremity: Negative for injury and deformity, Skin: Negative for injury, rash, and discoloration, Neuro: Negative for headache, weakness, numbness, tingling, and seizure. 18:01 Abdomen/GI: Positive for abdominal pain, abdominal distension. 18:01 Back: Positive for pain at rest, pain with movement, of the left low back. Exam: 18:01 Constitutional: This is a well developed, well nourished patient who is awake, alert, kb and in no acute distress. Head/Face: Normocephalic, atraumatic. Neck: Trachea midline, no thyromegaly or masses palpated, and no cervical lymphadenopathy. Supple, full range of motion without nuchal rigidity, or vertebral point tenderness. No Meningismus. Chest/axilla: Normal chest wall appearance and motion. Nontender with no deformity. No lesions are appreciated. Cardiovascular: Regular rate and rhythm with a normal S1 and S2. No gallops, murmurs, or rubs. Normal PMI, no JVD. No pulse deficits. Respiratory: Lungs have equal breath sounds bilaterally, clear to auscultation and percussion. No rales, rhonchi or wheezes noted. No increased work of breathing, no retractions or nasal flaring. Skin: Warm, dry with normal turgor. Normal color with no rashes, no lesions, and no evidence of cellulitis. MS/ Extremity: Pulses equal, no cyanosis. Neurovascular intact. Full, normal range of motion. Neuro: Awake and alert, GCS 15, oriented to person, place, time, and situation. Cranial nerves II-XII grossly intact. Motor strength 5/5 in all extremities. Sensory grossly intact. Cerebellar exam normal. Normal gait. 18:01 Abdomen/GI: Inspection: abdomen appears normal, Bowel sounds: normal, in all quadrants, Palpation: moderate abdominal tenderness, in the left upper quadrant and left lower quadrant. 18:01 Back: pain, that is moderate, of the left low back. Vital Signs: 17:03 BP 155 / 68; Pulse 71; Resp 16; Temp 97.7(TE); Pulse Ox 97% on R/A; Weight 62.14 kg; ss Height 5 ft. 2 in. (157.48 cm); Pain 10/10; 18:30 BP 147 / 59; Pulse 64; Resp 17 S; Pulse Ox 97% on R/A; ca1 17:03 Body Mass Index 25.06 (62.14 kg, 157.48 cm) ss MDM: 17:38 Patient medically screened. kb 18:01 Data reviewed: vital signs, nurses notes. Data interpreted: Pulse oximetry: on room air kb is 97 %. Interpretation: normal. 18:28 Counseling: I had a detailed discussion with the patient and/or guardian regarding: the kb historical points, exam findings, and any diagnostic results supporting the discharge/admit diagnosis, lab results, radiology results, the need for outpatient follow up, a family practitioner, to return to the emergency department if symptoms worsen or persist or if there are any questions or concerns that arise at home. 12/27 17:46 Order name: CT Stone Protocol; Complete Time: 18:28 kb 12/27 17:46 Order name: Urine Dipstick-Ancillary (obtain specimen); Complete Time: 18:27 kb Administered Medications: 18:43 Drug: traMADol 50 mg {Note: RASS - 0.} Route: PO; ca1 19:05 Follow up: Response: No adverse reaction; Pain is decreased ca1 18:44 Drug: TORadol 30 mg Route: IM; Site: left gluteus; ca1 19:05 Follow up: Response: No adverse reaction; Pain is decreased ca1 Disposition: 12/28 07:05 Co-signature as Attending Physician, Santo Rossi MD I agree with the assessment and kdr plan of care. Disposition: 12/28/19 18:29 Discharged to Home. Impression: Lumbago with sciatica, left side. - Condition is Stable. - Discharge Instructions: Sciatica, [id number], Back Exercises, [id number]. - Prescriptions for Cyclobenzaprine 10 mg Oral Tablet - take 1 tablet by ORAL route every 8 hours As needed; 21 tablet. Diclofenac Sodium 75 mg Oral Tablet, Delayed Release (E.C.) - take 1 tablet by ORAL route 2 times per day As needed; 30 tablet. - Medication Reconciliation Form, Thank You Letter, Antibiotic Education, Prescription Opioid Use form. - Follow up: Emergency Department; When: As needed; Reason: Worsening of condition. Follow up: Private Physician; When: 2 - 3 days; Reason: Recheck today's complaints, Continuance of care, Re-evaluation by your physician. Signatures: Dispatcher [employer] EDAR Debra Cuevas FNP-C FNP-Ckb Rittger, Kevin, MD MD kdr Smirch, Shelby, RN RN ss Yohana Ho RN RN ca1 Corrections: (The following items were deleted from the chart) 12/27 19:09 18:29 12/28/2019 18:29 Discharged to Home. Impression: Lumbago with sciatica, left ca1 side. Condition is Stable. Forms are Medication Reconciliation Form, Thank You Letter, Antibiotic Education, Prescription Opioid Use. Follow up: Emergency Department; When: As needed; Reason: Worsening of condition. Follow up: Private Physician; When: 2 - 3 days; Reason: Recheck today's complaints, Continuance of care, Re-evaluation by your physician. kb
--- NOTE | 2019-12-28 18:29 | ER ---
Nurse's Notes [facility] Name: Felisha Conde Age: 69 yrs Sex: Female : 1950 Arrival Date: 12/28/2019 Time: 16:50 Bed 14 Private MD: Diagnosis: Lumbago with sciatica, left side Presentation: 12/27 17:03 Chief complaint: Patient states: lower back pain that began 3 days ago. No known ss injury. Coronavirus screen: The patient has NOT traveled to a country currently being monitored by the [facility] within the last 14 days. Proceed with normal triage procedures. Ebola Screen: Patient denies exposure to infectious person. Patient denies travel to an Ebola-affected area in the 21 days before illness onset. Initial Sepsis Screen: Does the patient meet any 2 criteria? No. Patient's initial sepsis screen is negative. Does the patient have a suspected source of infection? No. Patient's initial sepsis screen is negative. Risk Assessment: Do you want to hurt yourself or someone else? Patient reports no desire to harm self or others. 17:03 Method Of Arrival: Ambulatory ss 17:03 Acuity: MIRANDA 4 ss 17:40 Onset of symptoms was December 28, 2019. ca1 17:47 Acuity: MIRANDA 3 iw 17:50 Onset of symptoms was December 28, 2019. ca1 Historical: - Allergies: 17:06 Soy; ss - PMHx: 17:06 Diabetes - NIDDM; Hyperlipidemia; Hypertension; ss - PSHx: 17:06 Hysterectomy; ss - Immunization history:: Adult Immunizations up to date. - Social history:: Smoking status: Patient denies any tobacco usage or history of. Screenin:40 Abuse screen: Denies threats or abuse. Denies injuries from another. Nutritional ca1 screening: No deficits noted. Tuberculosis screening: No symptoms or risk factors identified. Fall Risk None identified. Assessment: 17:40 General: Appears in no apparent distress. comfortable, Behavior is calm, cooperative, ca1 appropriate for age. Pain: Complains of pain in left low back Pain currently is 8 out of 10 on a pain scale. Pain began 2-3 days ago. Neuro: Level of Consciousness is awake, alert, obeys commands, Oriented to person, place, time, situation, Appropriate for age. Cardiovascular: Heart tones S1 S2 present Capillary refill < 3 seconds Patient's skin is warm and dry. Respiratory: Airway is patent Respiratory effort is even, unlabored, Respiratory pattern is regular, symmetrical, Breath sounds are clear bilaterally. GI: Abdomen is round non-distended, Bowel sounds present X 4 quads. Abd is soft and non tender X 4 quads. : Reports burning with urination, urgency, urinary frequency. EENT: No signs and/or symptoms were reported regarding the EENT system. Derm: Skin is intact, is healthy with good turgor, Skin is pink, warm \T\ dry. Musculoskeletal: Circulation, motion, and sensation intact. Capillary refill < 3 seconds, Range of motion: intact in all extremities. 18:31 Reassessment: Patient appears in no apparent distress at this time. Patient and/or ca1 family updated on plan of care and expected duration. Pain level reassessed. Patient is alert, oriented x 3, equal unlabored respirations, skin warm/dry/pink. 19:08 Reassessment: Patient appears in no apparent distress at this time. Patient is alert, ca1 oriented x 3, equal unlabored respirations, skin warm/dry/pink. Vital Signs: 17:03 BP 155 / 68; Pulse 71; Resp 16; Temp 97.7(TE); Pulse Ox 97% on R/A; Weight 62.14 kg; ss Height 5 ft. 2 in. (157.48 cm); Pain 10/10; 18:30 BP 147 / 59; Pulse 64; Resp 17 S; Pulse Ox 97% on R/A; ca1 17:03 Body Mass Index 25.06 (62.14 kg, 157.48 cm) ED Course: 16:50 Patient arrived in ED. mr 17:05 Triage completed. ss 17:06 Arm band placed on right wrist. ss 17:38 Debra Cuevas FNP-C is PHCP. kb 17:38 Santo Rossi MD is Attending Physician. kb 17:40 Patient has correct armband on for positive identification. Placed in gown. Bed in low ca1 position. Call light in reach. Side rails up X 1. Pulse ox on. NIBP on. Warm blanket given. 17:40 No provider procedures requiring assistance completed. ca1 18:09 CT Stone Protocol In Process Unspecified. EDMS 18:25 Yohana Ho, SANTO is Primary Nurse. ca1 19:09 Patient did not have IV access during this emergency room visit. ca1 Administered Medications: 18:43 Drug: traMADol 50 mg {Note: RASS - 0.} Route: PO; ca1 19:05 Follow up: Response: No adverse reaction; Pain is decreased ca1 18:44 Drug: TORadol 30 mg Route: IM; Site: left gluteus; ca1 19:05 Follow up: Response: No adverse reaction; Pain is decreased ca1 Outcome: 18:29 Discharge ordered by MD. allen 19: Discharged to home ambulatory, with family. ca1 19: Condition: stable 19: Discharge instructions given to patient, Instructed on discharge instructions, follow up and referral plans. medication usage, Demonstrated understanding of instructions, follow-up care, medications, Prescriptions given X 2. 19:09 Patient left the ED. ca1 Signatures: Dispatcher [employer] EDMS Debra Cuevas, DIRECTOR DENTAL SERVICES-C DIRECTOR DENTAL SERVICES-CkSuzette Haynes Irene, RN RN Casi Chau RN RN ss Acob, Cheryl, RN RN ca1
[2019-12-28] MEDS ORDERED: KETOROLAC 30 MG/ML INJ ONE (18:39)
[2019-12-28] MEDS ORDERED: TRAMADOL HCL 50 MG TAB ONE (18:41)
[2019-12-28 19:33] VITALS: TEMP 97.7; O2SAT 97
[2019-12-28 19:34] VITALS: BP 147/59
== END 2019-12-28 19:09 | disposition home or self-care (01) ==
LOC: ER 16:46
DX: M54.42 Lumbago with sciatica, left side (principal); I10 Essential (primary) hypertension; Z91.018 Allergy to other foods
CPT/HCPCS: 74176; 76377; 96372; 99284

== ENCOUNTER 2022-03-16 07:04 | Day surgery (SDC) | payer BC, OTHER ==
[2022-03-16] MEDS: NA CHLORIDE 0.9% 1,000 ML ONE ×2 (07:48→08:41)
--- NOTE | 2022-03-16 09:01 | ENDO RPT ---
[address], [address] COLONOSCOPY PROCEDURE REPORT EXAM DATE: 03/16/2022 PATIENT NAME: Felisha Conde I. MR #: [id number] BIRTHDATE: 1950 ATTENDING: Maico Johnson MD STATUS: outpatient [employer] ARCHITECT: Fausto Latham CST and Nati Roldan RN INDICATIONS: The patient is a 71 yr old Female here for a colonoscopy due to history of polyps PROCEDURE PERFORMED: Colonoscopy MEDICATIONS: Per Anesthesia. ESTIMATED BLOOD LOSS: None CONSENT: The patient understands the risks and benefits of the procedure and understands that these risks include, but are not limited to: sedation, allergic reaction, infection, perforation and/or bleeding. Alternative means of evaluation and treatment include, among others: physical exam, x-rays, and/or surgical intervention. The patient elects to proceed with this endoscopic procedure. DESCRIPTION OF PROCEDURE: During intra-op preparation period all mechanical medical equipment was checked for proper function. Hand hygiene and appropriate measures for infection prevention was taken. Procedure, possible complications, alternatives including, but not limited to possibility of bleeding, perforation, tear, infection, sepsis, need for surgery, need for blood transfusion, were explained to the patient. After the risks, benefits and alternatives of the procedure were thoroughly explained, Informed consent was verified, confirmed and timeout was successfully executed by the treatment team. The patient was placed in the left lateral position. A digital rectal exam was performed and revealed external hemorrhoids. After appropriate level of anesthesia, the scope was passed. The EC-[id number] ([id number]) endoscope was introduced through the anus and advanced to the cecum, which was identified by transillumination from the light source, the appendix, and the ileocecal valve. The quality of the prep was good. The instrument was then slowly withdrawn as the colon was fully examined. Scope withdrawal time was . COLON FINDINGS: Diverticulum was found in the descending colon. Retroflexed views revealed no abnormalities. The scope was then completely withdrawn from the patient and the procedure terminated. ADVERSE EVENTS: There were no complications. IMPRESSIONS: 1. Diverticulum in the descending colon 2. External hemorrhoids 3. Internal hemorrhoids RECOMMENDATIONS: 1. follow-up: office 1 week(s) 2. no seeds in diet 3. hemorrhoidal hygiene RECALL: Return in 3-5 year(s) for Colonoscopy. Maico Johnson MD eSigned: Maico Johnson MD 03/16/2022 9:01 AM cc: Maico Johnson M.D. CPT CODES: ICD9 CODES: PATIENT NAME: Felisha Conde I. MR#: [id number]
[2022-03-16] MEDS ORDERED: LIDOCAINE 1% MPF 5 ML VIAL ONE (09:08)
[2022-03-16] MEDS ORDERED: propofoL 200 MG/20 ML VIAL IV ONE (09:08)
[2022-03-16 09:41] VITALS: BP 127/60; O2SAT 100
[2022-03-16 09:42] VITALS: TEMP 97.4
== END 2022-03-16 09:35 | disposition home or self-care (01) ==
LOC: OR 07:04
PROVIDERS: ATTEND Surgery
PROC: 0DJD8ZZ Inspection of Lower Intestinal Tract, Via Natural or Artificial Opening Endoscopic (ICD-10-PCS; principal; 2022-03-16 09:15)
DX: Z86.010 Personal history of colon polyps (principal); E11.9 Type 2 diabetes mellitus without complications; E78.00 Pure hypercholesterolemia, unspecified; I10 Essential (primary) hypertension; Z85.828 Personal history of other malignant neoplasm of skin; Z20.822 Contact with and (suspected) exposure to COVID-19; K64.4 Residual hemorrhoidal skin tags; K64.8 Other hemorrhoids; K57.30 Diverticulosis of large intestine without perforation or abscess without bleeding
CPT/HCPCS: 82947; 45378; U0002; J2704; J7030